=== PATIENT | male | born 1975 | race African-American/Black ===

== ENCOUNTER 2016-07-09 20:31 | Inpatient (IN) | payer OTHER ==
[2016-07-09 21:02] LABS: % IMMATURE GRANULYOCYTES 0.3 % (0.0-1.1); ABSOLUTE IMMATURE GRANULOCYTES 0.02 10^3/uL (0.00-0.10); ADD DIFF? NO; ADD MORPH? NO; ADD SCAN? NO; ATYPICAL LYMPHOCYTE FLAG 10 (0-99); FRAGMENT RBC FLAG 0 (0-99); HEMATOCRIT 44.8 % (40.0-51.0); HEMOGLOBIN 14.5 g/dL (13.7-17.5); LEFT SHIFT FLG 0 (0-99); LIPEMIA HEMOLYSIS FLAG 80 (0-99); MEAN CELL HEMOGLOBIN 27.3 pg (27.9-34.1); MEAN CELL HEMOGLOBIN CONCENTR. 32.4 g/dL (32.4-36.7); MEAN CELL VOLUME 84.2 fL (81.5-99.8); MEAN PLATELET VOLUME 8.8 fL (8.7-11.7); PLATELET CLUMPS FLAG 10 (0-99); PLATELET COUNT 338 10^3/uL (150-400); RED BLOOD CELL COUNT 5.32 10^6/uL (4.40-6.38); RED CELL DISTRIBUTION WIDTH 13.3 % (11.5-15.2)
[2016-07-09 21:14] LABS: ANION GAP 9 mEq/L (8-16); CALCIUM 9.4 mg/dL (8.5-10.4); CARBON DIOXIDE 32 mEq/l (22-31); CHLORIDE 99 mEq/L (97-110); CREATININE 0.9 mg/dL (0.7-1.3); ETHANOL SERUM < 10 mg/dL (0-10); GLOMERULAR FILTRATION RATE > 60; GLUCOSE 98 mg/dL (70-100); POTASSIUM 3.8 mEq/L (3.5-5.2); SODIUM 140 mEq/L (134-144)
--- NOTE | 2016-07-09 23:53 | EDPHY ---
H & P Stated Complaint: SI, NOT TAKING CARE OF HIMSELF - Personal History Current Tetanus Diphtheria and Acellular Pertussis (TDAP): Yes - Medical/Surgical History Other PMH: DM - Social History Smoking Status: Current every day smoker Time Seen by Provider: 07/09/16 20:34 HPI/ROS: Chief complaint: On mental health hold, gravely disabled, suicidal ideation History of present illness: This is a 40-year-old male brought from the long-term by police to the emergency department on a mental health hold. Police report patient is not caring for himself. They believe he is gravely disabled. Further patient is reporting suicidal ideation. There is no specific plan. There is no report of homicidal ideation. No report of illness or injury. Review of systems: A 10 point review of systems was obtained and other than described above was negative (Carlitos Angel) - Physical Exam Exam: General Appearance: Alert, nontoxic. Eyes: Pupils equal and round no pallor or injection. ENT, Mouth: Mucous membranes moist. Respiratory: There are no retractions, lungs are clear to auscultation. Cardiovascular: Regular rate and rhythm. Gastrointestinal: Abdomen is soft and non tender, no masses, bowel sounds normal. Neurological: Alert. Strength and sensation intact and symmetrical. Skin: Warm and dry, no rashes. Musculoskeletal: Neck is supple non tender. Extremities are symmetrical, full range of motion. Psychiatric: There is no agitation. (Carlitos Angel) Constitutional: Initial Vital Signs Temperature (C) 36.6 C 07/09/16 20:42 Heart Rate 98 07/09/16 20:42 Respiratory Rate 16 07/09/16 20:42 Blood Pressure 184/125 H 07/09/16 20:42 O2 Sat (%) 98 07/09/16 20:42 O2 Delivery Mode Room Air Allergies/Adverse Reactions: No Known Allergies Allergy (Unverified 07/09/16 20:42) Home Medications: Medication Instructions Recorded Insulin 07/09/16 Medical Decision Making ED Course/Re-evaluation: Patient seen under the supervision of my secondary supervising physician Dr. Paramjit Carrillo. Patient presents to the emergency department with police on a mental health hold. Police feel he is gravely disabled. Patient does report suicidal ideation to me. Patient is medically evaluated and cleared for psychiatric evaluation. This is pending at time of dictation. Care of patient is turned over to my attending physician Dr. Matthews at end of shift. (Carlitos Angel) 1:00 a.m.- The patient was accepted to [address] [place] [address] Bond. I have completed the EMTALA form and the patient will be transported. (Kristy Matthews) Differential Diagnosis: Included but not limited to substance abuse, depression, bipolar, schizophrenia (Carlitos Angel) - Data Points Laboratory Results: Laboratory Results 07/09/16 20:50 07/09/16 20:50 07/09/16 07/09/16 20:50 20:45 WBC 7.61 10^3/uL (3.80-9.50) RBC 5.32 10^6/uL (4.40-6.38) Hgb 14.5 g/dL (13.7-17.5) Hct 44.8 % (40.0-51.0) MCV 84.2 fL (81.5-99.8) MCH 27.3 L pg (27.9-34.1) MCHC 32.4 g/dL (32.4-36.7) RDW 13.3 % (11.5-15.2) Plt Count 338 10^3/uL (150-400) MPV 8.8 fL (8.7-11.7) Neut % (Auto) 31.4 L % (39.3-74.2) Lymph % (Auto) 55.5 H % (15.0-45.0) Toole % (Auto) 8.1 % (4.5-13.0) Eos % (Auto) 3.9 % (0.6-7.6) Baso % (Auto) 0.8 % (0.3-1.7) Nucleat RBC Rel Count 0.0 % (0.0-0.2) Absolute Neuts (auto) 2.39 10^3/uL (1.70-6.50) Absolute Lymphs (auto) 4.22 H 10^3/uL (1.00-3.00) Absolute Monos (auto) 0.62 10^3/uL (0.30-0.80) Absolute Eos (auto) 0.30 10^3/uL (0.03-0.40) Absolute Basos (auto) 0.06 10^3/uL (0.02-0.10) Absolute Nucleated RBC 0.00 10^3/uL (0-0.01) Immature Gran % 0.3 % (0.0-1.1) Immature Gran # 0.02 10^3/uL (0.00-0.10) Sodium 140 mEq/L (134-144) Potassium 3.8 mEq/L (3.5-5.2) Chloride 99 mEq/L (97-110) Carbon Dioxide 32 H mEq/l (22-31) Anion Gap 9 mEq/L (8-16) BUN 14 mg/dL (7-23) Creatinine 0.9 mg/dL (0.7-1.3) Estimated GFR > 60 Glucose 98 mg/dL (70-100) Calcium 9.4 mg/dL (8.5-10.4) Total Bilirubin 0.4 mg/dL (0.1-1.4) Conjugated Bilirubin 0.2 mg/dL (0.0-0.5) Unconjugated Bilirubin 0.2 mg/dL (0.0-1.1) AST 33 IU/L (17-59) ALT 43 IU/L (21-72) Alkaline Phosphatase 114 IU/L (38-126) Total Protein 7.1 g/dL (6.3-8.2) Albumin 3.7 g/dL (3.5-5.0) TSH 4.160 uIU/mL (0.465-4.680) Urine Opiates Screen NEGATIVE (NEGATIVE) Urine Barbiturates NEGATIVE (NEGATIVE) Ur Phencyclidine Scrn NEGATIVE (NEGATIVE) Ur Amphetamine Screen NEGATIVE (NEGATIVE) U Benzodiazepines Scrn NEGATIVE (NEGATIVE) Urine Cocaine Screen NEGATIVE (NEGATIVE) U Marijuana (THC) Screen NEGATIVE (NEGATIVE) Ethyl Alcohol < 10 mg/dL (0-10) Departure - Departure Disposition: [facility] IP Clinical Impression: Suicidal ideation Condition: Good
[2016-07-10] MEDS ORDERED: OLANZapine DISINTEGR 5 MG TAB PO PRN ×2 (01:15→11:50)
[2016-07-10] MEDS ORDERED: MAGNESIUM HYDROXIDE 30 ML UDCUP PO PRN (01:15)
[2016-07-10] MEDS ORDERED: MAG HYDROX/AL HYDROX/SIMETH 30 ML UDCUP PO PRN (01:15)
[2016-07-10 01:44] LABS: ALANINE AMINOTRANSFERASE 43 IU/L (21-72); ALBUMIN 3.7 g/dL (3.5-5.0); ALKALINE PHOSPHATASE 114 IU/L (38-126); ASPARTATE AMINOTRANSFERASE 33 IU/L (17-59); BILIRUBIN,TOTAL 0.4 mg/dL (0.1-1.4); BILIRUBIN-CONJUGATED 0.2 mg/dL (0.0-0.5); BILIRUBIN-UNCONJUGATED 0.2 mg/dL (0.0-1.1); TOTAL PROTEIN 7.1 g/dL (6.3-8.2)
[2016-07-10] MEDS: ACETAMINOPHEN 325 MG TAB PO PRN ×2 (01:45→15:39)
--- NOTE | 2016-07-10 12:40 | BAPA ---
[ rep st] ADMISSION PSYCHIATRIC ASSESSMENT DATE OF SERVICE: 07/10/2016 When patient asked what brought him into the hospital he states, "I need my insulin. I'm having hallucinations". HISTORY OF PRESENT ILLNESS: Patient is a 40-year-old, male of ( /) who is , with no children who is on disability for chronic mental illness. The patient was evaluated at the group home at the time of his release, and was placed on an M1 hold for grave disability by [facility]. The patient had been in group home since January for "criminal impersonation." The M1 stated the patient has disorganized thinking, a variety of persistent delusions and has not been showering. The patient had been prescribed medication by [facility] psychiatrist, Dr. Sandoval in late April, but has patient refused to take it after a couple times. Patient was 1st diagnosed when he was in college at age 21 with schizoaffective disorder. Dr. Sandoval recently diagnosed him as chronic schizophrenia with disorganized type which seems like the more accurate diagnosis. The M1 hold also states the patient is illogical, rambling, paranoid , is hearing voices and seeing things. The patient has mostly isolated himself from the other inmates since his incarceration in January at the [facility]. Per notes of conversations with the patient's sister, the patient has a history of hospitalizations and not taking medications. His delusions are grandiose, somatic and paranoid in nature. One of the patient's delusions is that he has high blood sugar and needs insulin shots. He told EPS during their evaluation, "I have just relocated to [place] a couple years ago because I just graduated from college and I'm a runner... you know basketball. People are out to get me. They are eyeballing my feelings and trying to find a split personality. People are reading my thoughts" PSYCHIATRIC HISTORY: Patient was 1st diagnosed with psychosis at age 21. He appears to have a history of schizophrenia with delusions, feels people are reading his thoughts, and auditory hallucinations along with disorganized thoughts. Dr. Sandoval from [facility] recently evaluated the patient at the group home on 05/19/2016 and started him on Risperdal but he was refusing it after taking it a few times. Sister said the patient was diagnosed with schizoaffective when he was 21 while in college. No known suicide history. Patient cannot state when he has been hospitalized, however he did have labs from [facility] on 05/15/2012 and also May of 2011. The patient reportedly had a psychiatrist a few years ago when he was having auditory hallucinations, but it does not say who it was or even what state it was. MEDICAL HISTORY: The patient appears healthy. He does have a chronic delusion that he has diabetes. He does appear to have hypertension as his BP is elevated , however his glucose is within normal limits. CBC is normal. Chem panel is within normal limits. LFTs are normal. TSH is normal. Urine tox is negative. SUBSTANCE ABUSE: Has used alcohol and cannabis in the past-no known current use -[employer] FAMILY HISTORY: None known. SOCIAL HISTORY: Patient appears to be homeless. He has had some legal problems. He has been off his medications and has a sister. States he is worship. He is currently unemployed and on disability for schizophrenia. Apparently there is a note from a man named Richmond from the [facility], trying to contact the patient. He was raised by single mother in [place] with his siblings. He was in the past for 20 years and currently is . He has no children. He reports he had been [place] for a couple years but is homeless. 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 He has also spent some time in the [facility] group [facility]. He states he enjoys playing pool and bowling. MENTAL STATUS: Patient is alert and oriented x4. Mood is neutral. Affect is constricted. Thoughts are illogical and disorganized. Speech is tangential. The patient has a somatic delusion that he needs insulin and has high serum glucose. He reports recent auditory hallucinations. Denies current suicidal or homicidal ideation. +Recent Par I and feels people can read his thoughts. Denies problems with sleep or appetite. Memory and concentration are impaired due to psychosis. Insight and judgment are limited. IMPRESSION: Chronic disorganized schizophrenia. GAF on admission is 20. PLAN: The patient agrees to take Abilify. Will start Abilify 10 mg daily with plan of giving him Abilify Maintena if he responds to this medication. The patient will be seen by the medical physician who will treat his hypertension. The patient's BP was up to 179/110. 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 Apparently he has a payee but it is unclear if that is true. Will attempt to get more history. The patient is appropriate for inpatient psychiatric hospitalization. /[id number]/MODL MTDD
[2016-07-10] MEDS: ARIPiprazole 10 MG TAB PO SCH (12:56)
[2016-07-10] MEDS: amLODIPine BESYLATE 5 MG TAB PO SCH (14:46)
--- NOTE | 2016-07-10 16:06 | BCON ---
[f rep st] BEHAVIORAL HEALTH CONSULTATION INTERNAL MEDICINE CONSULTATION DATE OF CONSULTATION: 07/10/2016 REFERRING PHYSICIAN: Nani Bond MD REASON FOR CONSULTATION: Medical clearance for inpatient behavioral health stay. HISTORY OF PRESENT ILLNESS: Mr. Pedro came to the emergency department on a mental health hold, brought by police from penitentiary. He had been in penitentiary since January. It had been observed that he was not caring for himself. He also was reporting suicidal ideation. He was evaluated by the mental health team and admitted for further psychiatric care. He is currently without any acute complaints. PAST SURGICAL HISTORY: He reports a history of an ACL repair on the right knee and also right ankle surgery. PAST MEDICAL HISTORY: He reports that he has diabetes. MEDICATIONS: Prior to admission, he was prescribed risperidone while in penitentiary but reportedly was not taking it. ALLERGIES: There are no known drug allergies. SOCIAL HISTORY: He is homeless. He has family in [place]. He has a history of marijuana and alcohol use. FAMILY HISTORY: Unknown. REVIEW OF SYSTEMS: He reports that he has diabetes, and the symptoms that make him think so are that his feet are sweaty. He also reports that he has abdominal cramps. He denies anorexia, nausea, vomiting, constipation, or diarrhea. Otherwise, a 10-point review of systems is negative. PHYSICAL EXAM: VITAL SIGNS: Blood pressure is 188/115. Heart rate is 86. Respiratory rate is 16. Oxygen saturation is 98% on room air. Temperature is 37.1 degrees centigrade. His weight is recorded as 95.3 kg, which would give him a body mass index of 30.1, but he does not appear to be obese, so height or weight may be recorded incorrectly. His blood pressure has been in the range of 156 to 188 over 90 to 125 since he was first evaluated yesterday. GENERAL: This is a well-nourished, well-developed man, malodorous, cooperative, and in no acute distress. HEENT: Extraocular movements are intact. Pupils are equal , round, and reactive to light. Mucous membranes are moist. Dentition is in good condition. NECK: Supple. HEART: There is a regular rate and rhythm with no murmurs, rubs, or gallops. LUNGS: Clear to auscultation bilaterally. ABDOMEN: Soft, nontender, and nondistended with normoactive bowel sounds. EXTREMITIES: There is no cyanosis, clubbing, or edema. NEUROLOGIC: He is alert. He is oriented to his current situation. Further orientation was not tested. Cranial nerves 2-12 are grossly intact. There is no focal weakness, and sensation is intact to light touch. LABORATORY DATA: Laboratory studies drawn in the emergency department, CBC was overall within normal limits. There is a mild decrement of mean cellular hemoglobin, likely of no clinical significance, and there was a predominance of absolute neutrophils at 4.22, again of no clinical significance. Serum chemistry revealed a slightly high carbon dioxide of 32, otherwise renal function, electrolytes, and liver functions were within normal limits. TSH was normal at 4.16. Toxicology in the urine was negative for substances of abuse, and the serum was negative for ethyl alcohol. ASSESSMENT/RECOMMENDATIONS: 1. Mental health issues. Pending further evaluation and management per Psychiatry and the mental health team. 2. Hypertension. His blood pressure is high enough this morning that he will likely need 2 agents for optimal control. I will begin with amlodipine starting at 5 mg daily. This should be titrated if he tolerates it, and a 2nd agent will likely need to be added. If his mental status clears well enough to be able to understand medications and their adverse affects, the next best choice for him would be a diuretic. I see no medical contraindications to the patient's continued stay on the inpatient behavioral health unit or to any psychiatric medications or procedures. Thank you very much for involving me in the care of this patient, and please do not hesitate to contact me or the hospitalist service should there be a need for further medical evaluation. /[id number]/MODL MTDD
[2016-07-10] MEDS: CEPACOL LOZENGE PO PRN (16:27)
[2016-07-11] MEDS: CEPACOL LOZENGE PO PRN ×3 (05:18→14:20)
[2016-07-11] MEDS: NICOTINE POLACRILEX 2 MG GUM B PRN (05:18)
[2016-07-11] MEDS: ACETAMINOPHEN 325 MG TAB PO PRN ×2 (06:42→14:20)
[2016-07-11] MEDS: ARIPiprazole 10 MG TAB PO SCH (08:40)
[2016-07-11] MEDS: amLODIPine BESYLATE 5 MG TAB PO SCH (08:49)
--- NOTE | 2016-07-11 13:23 | SOAPPROG ---
SOAP Progress Note Assessment/Plan: Assessment: 40 yo w/chronic SZP txf to [facility] on [facility] after time served in snf since Jan, but noted disorganized/psychotic/delusional and not compliant with psych meds. Also with HTN and recent R knee surg 07/12/16 00:49 reviewed notes, t/w staff and interviewed pt. per staff, slept 8hr. cooperative, good eye contact, resting in bed, reported feeling "a little suicidal" and later reported feeling "a little anxious" (why?) "I'm trying to get insulin because I got diabetes". Reports knowing this "because I'm having sweaty feet and cold sweats...(due to) a lack of sugar, or too much sugar" . also endorsed hallucinations "of others trying to mimic what I do". States he took tylenol for h/a, and is "jonesing for a cigarette, but I asked for a throat lozenge". denied any plan/intent to harm self or others. calm. guarded. Plan: cont abilify as recently started 10mg qd monitor for any s/e such as akathisia since c/o anxiety [facility] exp 07/15 at 1740. monitor HTN. per med h&P, recently started norvasc, may need 2nd med Objective: Vital Signs Temp Pulse Resp BP Pulse Ox 36.6 C 80 14 148/97 H 98 07/11/16 07:54 07/11/16 07:54 07/11/16 07:54 07/11/16 07:54 07/11/16 07:54 Medications Generic Name Dose Route Start Last Admin Trade Name Nahomi PRN Reason Stop Dose Admin Lorazepam 0.5 - 1 mg 07/10/16 01:15 Ativan PO 01/06/17 01:14 Q4HRS PRN Anxiety, Able to Take PO Nicotine Polacrilex 2 mg 07/10/16 01:15 07/11/16 05:18 Nicorette B 01/06/17 01:14 2 mg Q1HR PRN Nicotine Withdrawal Throat Lozenges 1 ea 07/10/16 16:17 07/11/16 14:20 Cepacol Lozenge PO 01/06/17 16:16 1 ea Q1 PRN Sore Throat Aripiprazole 10 mg 07/10/16 12:00 07/11/16 08:40 Abilify PO 01/06/17 11:59 10 mg DAILY THALIA Amlodipine Besylate 5 mg 07/10/16 14:30 07/11/16 08:49 Norvasc PO 01/06/17 14:29 5 mg DAILY THALIA Olanzapine 10 mg 07/10/16 11:50 Zyprexa Zydis PO 01/06/17 01:14 Q4 PRN AGITATION - Pending Discharge Pending Discharge Within 24 Hours: No Pending Discharge Within 48 Hours: No ICD10 Worksheet Patient Problems: Problems Problem Status Diagnosed Suicidal ideation Acute
[2016-07-12] MEDS: ACETAMINOPHEN 325 MG TAB PO PRN (06:46)
[2016-07-12] MEDS: CEPACOL LOZENGE PO PRN (06:46)
--- NOTE | 2016-07-12 07:57 | SOAPPROG ---
SOAP Progress Note Assessment/Plan: Assessment: 40 yo w/chronic SZP txf to [facility] on [facility] after time served in half-way since Jan, but noted disorganized/psychotic/delusional and not compliant with psych meds. Also with HTN and recent R knee surg 07/11/16 16:49 reviewed notes, t/w staff and interviewed pt. per staff, slept 8hr. cooperative, good eye contact, resting in bed, reported feeling "a little suicidal" and later reported feeling "a little anxious" (why?) "I'm trying to get insulin because I got diabetes". Reports knowing this "because I'm having sweaty feet and cold sweats...(due to) a lack of sugar, or too much sugar" . also endorsed hallucinations "of others trying to mimic what I do". States he took tylenol for h/a, and is "jonesing for a cigarette, but I asked for a throat lozenge". denied any plan/intent to harm self or others. calm. guarded. Plan: cont abilify as recently started 10mg qd monitor for any s/e such as akathisia since c/o anxiety [facility] exp 07/15 at 1740. monitor HTN. per med h&P, recently started norvasc, may need 2nd med 07/12/16 11:28 per staff, slept 5hr. up at 4am. would like reading glasses so he can read on unit reports mood is "a little hallucinogenic". asked to elaborate- "feeling that others are trying to mimic me". affect restricted, calm. good eye contact. nml vol/rate speech. did not appear responding to int stim. denied AH/VH or any SI. attending some groups. 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 otherwise page noted with extensive illegible disorganized writing of words/ numbers around periphery on both sides. when asked about this, he reports these were things he was writing to not forget. denied physical complaints, and denied s/e to medication. Plan: cont Abilify. placed on [facility] Objective: Vital Signs Temp Pulse Resp BP Pulse Ox 36.8 C 105 H 16 138/100 H 95 07/12/16 06:31 07/12/16 06:31 07/12/16 06:31 07/12/16 06:31 07/12/16 06:31 - Time Spent With Patient Time Spent With Patient: 20min - Pending Discharge Pending Discharge Within 24 Hours: No Pending Discharge Within 48 Hours: No ICD10 Worksheet Patient Problems: Problems Problem Status Diagnosed Suicidal ideation Acute
[2016-07-12] MEDS: ARIPiprazole 10 MG TAB PO SCH (08:13)
[2016-07-12] MEDS: amLODIPine BESYLATE 5 MG TAB PO SCH (08:14)
[2016-07-13] MEDS: ACETAMINOPHEN 325 MG TAB PO PRN (06:05)
[2016-07-13] MEDS: CEPACOL LOZENGE PO PRN (06:06)
[2016-07-13] MEDS: amLODIPine BESYLATE 5 MG TAB PO SCH (08:35)
[2016-07-13] MEDS: ARIPiprazole 10 MG TAB PO SCH (08:35)
--- NOTE | 2016-07-13 11:24 | SOAPPROG ---
SOAP Progress Note Assessment/Plan: Assessment: Pt is a 40 y/o male with a hx of Schizophrenia who was put on an M1 from [facility] for psychosis causing grave disability. He has a delusion that he needs insulin for diabetes which he does not have. Plan:pt on a STC he states he wants to return to [place] con't Abilify 10mg QD for psychosis 07/13/16 11:21 Subjective: no c/o Objective: Vital Signs Temp Pulse Resp BP Pulse Ox 36.8 C 115 H 16 134/89 H 96 07/13/16 11:13 07/13/16 11:13 07/13/16 11:13 07/13/16 11:13 07/13/16 11:13 Pt is A+O x4 mood-euthymic affect-appr no S/H I denies A/V H +delusions sleep/appetite-wnl thoughts-illogical at times speech-monotone no JEANIE memory/conc-fair no sx escobar I/J-limited but is taking meds - Time Spent With Patient Time Spent With Patient: 20' - Pending Discharge Pending Discharge Within 24 Hours: No Pending Discharge Within 48 Hours: No ICD10 Worksheet Patient Problems: Problems Problem Status Diagnosed Suicidal ideation Acute
[2016-07-14] MEDS: ARIPiprazole 10 MG TAB PO SCH (08:54)
[2016-07-14] MEDS: amLODIPine BESYLATE 5 MG TAB PO SCH (08:54)
[2016-07-14] MEDS: ACETAMINOPHEN 325 MG TAB PO PRN (09:02)
--- NOTE | 2016-07-14 11:19 | SOAPPROG ---
SOAP Progress Note Assessment/Plan: Assessment: Pt is a 40 y/o male with a hx of Schizophrenia who was put on an M1 from shelter for psychosis causing grave disability. He has a delusion that he needs insulin for diabetes which he does not have. Plan:pt on a STC con't Abilify 10mg QD for psychosis-pt still with thought disorder and bizarre ideas if pt improves on Abilify will offer Abilify Maintaina 07/14/16 11:19 Subjective: no c/o but reported to RN that someone was smoking on the unit and that it bothered him Objective: Vital Signs Temp Pulse Resp BP Pulse Ox 36.5 C 113 H 14 143/92 H 94 07/14/16 08:40 07/14/16 08:40 07/14/16 06:26 07/14/16 08:54 07/14/16 08:40 Pt is A+O mood-neutral affect-appr denies A/V H speech-rambling thoughts-nonsensical, illogical sleep/appetite/energy level-good + somatic delusions +JEANIE memory-poor conc-poor I/J-limited - Time Spent With Patient Time Spent With Patient: 20' - Pending Discharge Pending Discharge Within 24 Hours: No Pending Discharge Within 48 Hours: No ICD10 Worksheet Patient Problems: Problems Problem Status Diagnosed Suicidal ideation Acute
[2016-07-15] MEDS: amLODIPine BESYLATE 5 MG TAB PO SCH (08:24)
[2016-07-15] MEDS: CEPACOL LOZENGE PO PRN ×3 (08:25→20:16)
[2016-07-15] MEDS: ARIPiprazole 10 MG TAB PO SCH (08:25)
[2016-07-15] MEDS: ACETAMINOPHEN 325 MG TAB PO PRN (20:16)
[2016-07-16] MEDS: LORazepam 0.5 MG TAB PO PRN (07:54)
[2016-07-16] MEDS: ARIPiprazole 10 MG TAB PO SCH (09:07)
[2016-07-16] MEDS: amLODIPine BESYLATE 5 MG TAB PO SCH (09:07)
[2016-07-16] MEDS: CEPACOL LOZENGE PO PRN ×2 (09:07→17:04)
--- NOTE | 2016-07-16 11:11 | SOAPPROG ---
SOAP Progress Note Assessment/Plan: Assessment: Pt is a 40 y/o male with a hx of Schizophrenia who was put on an M1 from [facility] for psychosis causing grave disability. He has a delusion that he needs insulin for diabetes which he does not have. Plan:pt on a STC increase Abilify to 15 mg QD for psychosis-pt still with thought disorder and bizarre ideas if pt improves on Abilify will offer Abilify Maintaina 07/16/16 11:08 Subjective: "I need you to initial some papers to put into my chart." Gives MD 3 pages of documents with scribbling on them. Objective: Vital Signs Temp Pulse Resp BP Pulse Ox 36.4 C 94 20 138/85 H 95 07/16/16 08:00 07/16/16 08:00 07/16/16 08:00 07/16/16 09:07 07/16/16 08:00 Pt is A+O x4 mood-euthymic affect-appr vague SI denies A/V H thoughts-illogical, with somatic delusions +somatic delusions that he needs an inhaler and insulin sleep/appetite-wnl speech-rambling +JEANIE good energy level memory/conc-impaired due to psychosis I/J-limited - Time Spent With Patient Time Spent With Patient: 25' - Pending Discharge Pending Discharge Within 24 Hours: No Pending Discharge Within 48 Hours: No ICD10 Worksheet Patient Problems: Problems Problem Status Diagnosed Suicidal ideation Acute
[2016-07-17] MEDS: CEPACOL LOZENGE PO PRN ×2 (07:31→20:23)
[2016-07-17] MEDS: amLODIPine BESYLATE 5 MG TAB PO SCH (08:15)
[2016-07-17] MEDS: ARIPiprazole 10 MG TAB PO SCH (08:16)
--- NOTE | 2016-07-17 11:30 | SOAPPROG ---
SOAP Progress Note Assessment/Plan: Assessment: Pt is a 40 y/o male with a hx of Schizophrenia who was put on an M1 from correction for psychosis causing grave disability. He has a delusion that he needs insulin for diabetes which he does not have. 07/17/16-pt is more verbal about his delusions and more interactive asking this MD to sign a magazine ad and some papers containing scribbling. Plan:pt on a ST con't Abilify 15 mg QD for psychosis-pt still with thought disorder and bizarre ideas if pt improves on Abilify will offer Abilify Maintaina 07/17/16 11:27 Subjective: "Can you sign these-it has to do with my music and the [employer]." Objective: Vital Signs Temp Pulse Resp BP Pulse Ox 36.6 C 105 H 16 134/81 H 96 07/17/16 08:15 07/17/16 08:15 07/17/16 08:15 07/17/16 08:15 07/17/16 08:15 Pt is A+O x4 mood-neutral affect-appr thoughts-illogical + delusions-grandiose and somatic slept 1.5 hours last night speech-rambling denies A/V H but appears to be responding to internal stimuli no S/H I good appetite +JEANIE memory/conc-impaired by psychosis I/J-limited - Time Spent With Patient Time Spent With Patient: 20' - Pending Discharge Pending Discharge Within 24 Hours: No Pending Discharge Within 48 Hours: No ICD10 Worksheet Patient Problems: Problems Problem Status Diagnosed Suicidal ideation Acute
[2016-07-18] MEDS: LORazepam 0.5 MG TAB PO PRN (06:30)
[2016-07-18] MEDS: amLODIPine BESYLATE 5 MG TAB PO SCH (08:42)
[2016-07-18] MEDS: ARIPiprazole 10 MG TAB PO SCH (08:43)
--- NOTE | 2016-07-18 13:27 | SOAPPROG ---
MARIVEL Progress Note Assessment/Plan: Assessment: Plan: 07/18/16 13:28 Slow improvement. Remains quite ill. CCM. Subjective: Pt seen, discussed with staff, chart reviewed. Remains disorganized, but engaging. He show me numerous copies he has made from magazines with notations on them. He makes references to basketball and making money but it is unclear what any of it means. He is pleasant, but unable to communicate effectively. compliant with meds. Notes no SE's. Tolerated increase in Abilify well. Objective: Vital Signs Temp Pulse Resp BP Pulse Ox 36.6 C 121 H 14 139/97 H 93 07/18/16 08:00 07/18/16 08:00 07/18/16 08:00 07/18/16 08:42 07/18/16 08:00 MSE: Calm, coop. Affect is euthymic, stable, approp. Mood is "good." TP disorganized, rambling. TC reveals grandiose and possibly paranoid thoughts, internal preoccupation at times. - Time Spent With Patient Time Spent With Patient: 25" - Pending Discharge Pending Discharge Within 24 Hours: No Pending Discharge Within 48 Hours: No ICD10 Worksheet Patient Problems: Problems Problem Status Diagnosed Suicidal ideation Acute
[2016-07-19] MEDS: amLODIPine BESYLATE 5 MG TAB PO SCH (07:59)
[2016-07-19] MEDS: ARIPiprazole 10 MG TAB PO SCH (08:00)
[2016-07-19] MEDS: CEPACOL LOZENGE PO PRN ×2 (10:26→15:41)
[2016-07-20] MEDS: ARIPiprazole 10 MG TAB PO SCH (08:26)
[2016-07-20] MEDS: amLODIPine BESYLATE 5 MG TAB PO SCH (08:26)
--- NOTE | 2016-07-20 10:19 | SOAPPROG ---
SOAP Progress Note Assessment/Plan: Assessment: Pt is a 40 y/o male with a hx of Schizophrenia who was put on an M1 from nursing home for psychosis causing grave disability. He has a delusion that he needs insulin for diabetes which he does not have. 07/17/16-pt is more verbal about his delusions and more interactive asking this MD to sign a magazine ad and some papers containing scribbling. 07/20/16-pt asking for us to contact the [employer] who may be his payee-now talking about going to [place] to "play ball" Plan:pt on a ST continue Abilify 15 mg QD for psychosis-pt still with thought disorder and bizarre ideas if pt improves on Abilify will offer Abilify Maintaina 07/20/16 10:15 Subjective: "When can I get out of here.?" Objective: Vital Signs Temp Pulse Resp BP Pulse Ox 36.7 C 95 16 136/100 H 95 07/20/16 00:30 07/20/16 00:30 07/20/16 00:30 07/20/16 08:26 07/20/16 00:30 Pt is A+O x4 mood-neutral affect-appr thoughts-illogical at times then can be logical + disorganized behavior denies A/V H denies S/H I + delusions-grandiose speech-rambling at times slept less than 3 hours appetite/energy level-good memory/conc-poor due to psychosis I/J-limited - Time Spent With Patient Time Spent With Patient: 20 - Pending Discharge Pending Discharge Within 24 Hours: No Pending Discharge Within 48 Hours: No ICD10 Worksheet Patient Problems: Problems Problem Status Diagnosed Suicidal ideation Acute
--- NOTE | 2016-07-20 11:20 | SOAPPROG ---
SOAP Progress Note Assessment/Plan: Assessment: Plan: 07/18/16 13:28 Slow improvement. Remains quite ill. CCM. 07/20/16 11:20 No interval change. CCM. Subjective: LATE ENTRY FOR 07/19/16 Pt seen, discussed with staff. Remains disorganized, moderately agitated, pacing frequently. Intrusive, frequent requesting my attention to show me scraps of paper or magazine ads. Speaking nonsensically at times. No behaviors issues. Objective: Vital Signs Temp Pulse Resp BP Pulse Ox 36.7 C 95 16 136/100 H 95 07/20/16 00:30 07/20/16 00:30 07/20/16 00:30 07/20/16 08:26 07/20/16 00:30 MSE: Moderately agitated. Affect is constricted, stable. Mood is "fine." TP disorganized. TC reveals grandiose delusions, internal preoccupation. - Time Spent With Patient Time Spent With Patient: 25" - Pending Discharge Pending Discharge Within 24 Hours: No Pending Discharge Within 48 Hours: No ICD10 Worksheet Patient Problems: Problems Problem Status Diagnosed Suicidal ideation Acute
[2016-07-21] MEDS: amLODIPine BESYLATE 5 MG TAB PO SCH (08:34)
[2016-07-21] MEDS: ARIPiprazole 10 MG TAB PO SCH (08:36)
--- NOTE | 2016-07-21 10:56 | SOAPPROG ---
SOAP Progress Note Assessment/Plan: Assessment: Pt is a 40 y/o male with a hx of Schizophrenia who was put on an M1 from nursing home for psychosis causing grave disability. He has a delusion that he needs insulin for diabetes which he does not have. 07/17/16-pt is more verbal about his delusions and more interactive asking this MD to sign a magazine ad and some papers containing scribbling. 07/20/16-pt asking for us to contact the [employer] who may be his payee-now talking about going to [place] to "play ball" 07/21/16-pt with bright mood but only slept 1.5 hours Plan:pt on a STC continue Abilify 15 mg QD for psychosis-pt still with thought disorder and bizarre ideas if pt improves on Abilify will offer Abilify Maintaina will add Seroquel for sleep/psychosis CM trying to reach [employer] to see who is pt's payee 07/21/16 10:56 Subjective: "Good." Objective: Vital Signs Temp Pulse Resp BP Pulse Ox 36.8 C 116 H 16 142/81 H 96 07/21/16 08:44 07/21/16 08:44 07/21/16 00:30 07/21/16 08:44 07/21/16 08:44 Pt is A+O x4 mood-euthymic affect-appr thoughts-illogical + grandiose delusions denies A/V H no S/H I speech-rambling at times + disorganized behavior-asks staff to copy pieces of random papers with scribbling on them memory-poor conc-poor I/J-limited - Time Spent With Patient Time Spent With Patient: 20' - Pending Discharge Pending Discharge Within 24 Hours: No Pending Discharge Within 48 Hours: No ICD10 Worksheet Patient Problems: Problems Problem Status Diagnosed Suicidal ideation Acute
[2016-07-21] MEDS: QUEtiapine FUMARATE 100 MG TAB PO SCH (21:14)
[2016-07-22] MEDS: ARIPiprazole 10 MG TAB PO SCH (08:58)
[2016-07-22] MEDS: amLODIPine BESYLATE 5 MG TAB PO SCH (08:58)
--- NOTE | 2016-07-22 13:12 | SOAPPROG ---
SOAP Progress Note Assessment/Plan: Assessment: Plan: 07/18/16 13:28 Slow improvement. Remains quite ill. CCM. 07/20/16 11:[address] [facility]. 07/22/16 13:11 Remains actively psychotic. Not yet able to make decisions for his own well- being or participate in his outpatient care. Subjective: Pt seen, discussed with staff. Reports feeling "just great." Animated, talkative today. Poor boundaries with younger females making inappropriate comments and overtures. Compliant with treatments. Remains disorganized and pressured with odd behaviors. Objective: Vital Signs Temp Pulse Resp BP Pulse Ox 36.6 C 115 H 14 143/92 H 92 07/22/16 08:51 07/22/16 08:51 07/22/16 08:51 07/22/16 08:58 07/22/16 08:51 MSE: Moderately agitated, pressured. Affect is elevated. Mood is "great." TP disorganized. TC reveals loose associations, internal focus. - Time Spent With Patient Time Spent With Patient: 15" - Pending Discharge Pending Discharge Within 24 Hours: No Pending Discharge Within 48 Hours: No ICD10 Worksheet Patient Problems: Problems Problem Status Diagnosed Suicidal ideation Acute
[2016-07-22] MEDS: QUEtiapine FUMARATE 100 MG TAB PO SCH (21:50)
[2016-07-23] MEDS: ARIPiprazole 10 MG TAB PO SCH (08:25)
[2016-07-23] MEDS: amLODIPine BESYLATE 5 MG TAB PO SCH (08:26)
[2016-07-23] MEDS ORDERED: ARIPiprazole 5 MG TAB PO ONE (11:30)
[2016-07-23] MEDS: LORazepam 0.5 MG TAB PO PRN (11:55)
--- NOTE | 2016-07-23 12:14 | SOAPPROG ---
SOAP Progress Note Assessment/Plan: Assessment: Pt is a 40 y/o male with a hx of Schizophrenia who [facility]. He has a delusion that he needs insulin for diabetes which he does not have. 07/17/16-pt is more verbal about his delusions and more interactive asking this MD to sign a magazine ad and some papers containing scribbling. 07/20/16-pt asking for us to contact the [employer] who may be his payee-now talking about going to [place] to "play ball" 07/21/16-pt with bright mood but only slept 1.5 hours 07/23/16-refused Seroquel but slept 5 hours-still asking to copy bizarre papers and asks if "they are fraud" Plan:pt on a STC Will increase Abilify to 20 mg QD for psychosis-pt still with thought disorder and bizarre ideas if pt improves on Abilify will offer Abilify Maintaina will D/C Seroquel as pt is refusing to take it [employer] is pt's payee and have housing set up for pt when he is more stable 07/23/16 12:10 Subjective: "I found an apt for $600 per month." Objective: Vital Signs Temp Pulse Resp BP Pulse Ox 36.3 C 109 H 12 146/87 H 95 07/23/16 09:08 07/23/16 09:08 07/23/16 09:08 07/23/16 09:08 07/23/16 09:08 Pt is A+O x4 mood-euthymic affect-appr thoughts-illogical speech-pressured slept 5 hours appetite and energy level are wnl denies S/H I denies A/V H + delusions speech-rambling memory/conc-impaired by psychosis I/J-limited - Time Spent With Patient Time Spent With Patient: 25' - Pending Discharge Pending Discharge Within 24 Hours: No Pending Discharge Within 48 Hours: No ICD10 Worksheet Patient Problems: Problems Problem Status Diagnosed Suicidal ideation Acute
[2016-07-24] MEDS: amLODIPine BESYLATE 5 MG TAB PO SCH (08:30)
[2016-07-24] MEDS: ARIPiprazole 10 MG TAB PO SCH (08:30)
--- NOTE | 2016-07-24 11:21 | SOAPPROG ---
SOAP Progress Note Assessment/Plan: Assessment: Pt is a 40 y/o male with a hx of Schizophrenia who was put on an M1 from longterm for psychosis causing grave disability. He has a delusion that he needs insulin for diabetes which he does not have. 07/17/16-pt is more verbal about his delusions and more interactive asking this MD to sign a magazine ad and some papers containing scribbling. 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 and talking about buy a 2.5 million dollar condo Plan:pt on a STC Will Continue Abilify to 20 mg QD for psychosis-pt still with thought disorder and bizarre ideas if pt improves on Abilify will offer Abilify Maintaina will D/C Seroquel as pt is refusing to take [facility] and have housing set up for pt when he is more stable 07/24/16 11:18 Subjective: "I have money here." Point to a piece of paper with scribbling Objective: Vital Signs Temp Pulse Resp BP Pulse Ox 36.7 C 121 H 14 134/86 H 95 07/24/16 08:00 07/24/16 08:00 07/24/16 08:00 07/24/16 08:30 07/24/16 08:00 Pt is A+O x4 mood-euthymic affect-appr thoughts-logical speech-wnl no S/H I + AH appears to be responding to internal stimuli no VH + sx of psychosis + delusions-grandiose memory/conc-poor I/J-limited - Time Spent With Patient Time Spent With Patient: 25' - Pending Discharge Pending Discharge Within 24 Hours: No Pending Discharge Within 48 Hours: No ICD10 Worksheet Patient Problems: Problems Problem Status Diagnosed Suicidal ideation Acute
[2016-07-25] MEDS: amLODIPine BESYLATE 5 MG TAB PO SCH (08:32)
[2016-07-25] MEDS: ARIPiprazole 10 MG TAB PO SCH (08:32)
--- NOTE | 2016-07-25 10:42 | SOAPPROG ---
SOAP Progress Note Assessment/Plan: Assessment: Pt is a 40 y/o male with a hx of Schizophrenia who [facility]. He has a delusion that he needs insulin for diabetes which he does not have. 07/17/16-pt is more verbal about his delusions and more interactive asking this MD to sign a magazine ad and some papers containing scribbling. 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 and talking about buy a 2.5 million dollar condo Plan:pt on a ST Will Continue Abilify to 20 mg QD for psychosis-pt still with thought disorder and bizarre ideas if pt improves on Abilify will offer Abilify Maintaina will D/C Seroquel as pt is refusing to take it [employer] [facility] is pt's payee and have housing set up for pt when he is more stable sister reports pt has been on injectable meds in the past and was stable enough to work in the past-mom will get the names of the meds 07/25/16 10:39 Subjective: no c/o Objective: Vital Signs Temp Pulse Resp BP Pulse Ox 36.6 C 104 H 14 140/86 H 95 07/25/16 00:30 07/25/16 00:30 07/25/16 00:30 07/25/16 00:30 07/25/16 00:30 Pt is A+O x 4 mood-euthymic affect-appr +AH denies S/H I thoughts-illogical at times speech-rambling at times, talks about having a lot of money, playing basketball slept 3.5 hours-refusing any meds to help him sleep + grandiose delusions memory/conc-impaired due to psychosis I/J-poor - Time Spent With Patient Time Spent With Patient: 20' - Pending Discharge Pending Discharge Within 24 Hours: No Pending Discharge Within 48 Hours: No ICD10 Worksheet Patient Problems: Problems Problem Status Diagnosed Suicidal ideation Acute
[2016-07-25] MEDS: CEPACOL LOZENGE PO PRN ×3 (12:32→21:49)
[2016-07-26] MEDS: amLODIPine BESYLATE 5 MG TAB PO SCH (08:05)
[2016-07-26] MEDS: ARIPiprazole 10 MG TAB PO SCH (08:05)
--- NOTE | 2016-07-26 11:15 | SOAPPROG ---
SOAP Progress Note Assessment/Plan: Assessment: Pt is a 40 y/o male with a hx of Schizophrenia who was put on an M[facility] from [facility] for psychosis causing grave disability. He has a delusion that he needs insulin for diabetes which he does not have. 07/17/16-pt is more verbal about his delusions and more interactive asking this MD to sign a magazine ad and some papers containing scribbling. 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 is pt's payee and have housing set up for pt when he is more stable sister reports pt has been on injectable meds in the past and was stable enough to work in the past-mom will get the names of the meds 07/26/16 12:16 Subjective: Still grandiose about having money and playing basketball for colleges in [place]" and states, "I'm having suicidal thoughts." Objective: Vital Signs Temp Pulse Resp BP Pulse Ox 36.6 C 113 H 14 142/94 H 92 07/26/16 10:06 07/26/16 10:06 07/26/16 10:06 07/26/16 10:06 07/26/16 10:06 Pt is A+O mood-neutral affect-appr denies A/V H but may be responding to int stimuli + Delusions +SI with thoughts to jump off a bridge poor sleep good appetite thoughts-illogical speech-rambling memory-impaired I/J-poor - Time Spent With Patient Time Spent With Patient: 20' - Pending Discharge Pending Discharge Within 24 Hours: No Pending Discharge Within 48 Hours: No ICD10 Worksheet Patient Problems: Problems Problem Status Diagnosed Suicidal ideation Acute
[2016-07-27] MEDS: amLODIPine BESYLATE 5 MG TAB PO SCH (07:50)
[2016-07-27] MEDS: ARIPiprazole 10 MG TAB PO SCH (07:51)
--- NOTE | 2016-07-27 10:27 | SOAPPROG ---
SOAP Progress Note Assessment/Plan: Assessment: Pt is a 40 y/o male with a hx of Schizophrenia who [facility] for psychosis causing grave disability. He has a delusion that he needs insulin for diabetes which he does not have. 07/17/16-pt is more verbal about his delusions and more interactive asking this MD to sign a magazine ad and some papers containing scribbling. 07/20/16-pt asking for us to contact the [facility] [employer] [facility] who may be his payee-now talking about going to [place] to "play ball" 07/21/16-pt with bright mood but only slept 1.5 hours 07/23/16-refused Seroquel but slept 5 hours-still asking to copy bizarre papers and asks if "they are fraud" 07/24/16 -still disorganized talking about playing basketball for multiple colleges and talking about buy a 2.5 million dollar condo 07/26/16-only slept 1 hour last night but refusing to take any additional meds and states, "I'm having suicidal thoughts" 07/27/16-pt finally slept-went to bed early and slept 14+ hours Plan:pt on a STC Will Continue Abilify to 20 mg QD for psychosis-pt still with thought disorder and bizarre ideas if pt improves on Abilify will offer Abilify Maintaina will D/C Seroquel as pt is refusing to take it [facility] is pt's payee and have housing set up for pt when he is more stable sister reports pt has been on injectable meds in the past and was stable enough to work in the past-mom will get the names of the meds 07/27/16 10:24 Subjective: "Can I be discharged today?" Objective: Vital Signs Temp Pulse Resp BP Pulse Ox 36.6 C 105 H 14 143/80 H 91 L 07/26/16 23:42 07/26/16 23:42 07/26/16 23:42 07/26/16 23:42 07/26/16 23:42 Pt is A+O x4 mood-euthymic affect-appr denies A/V H + grandiose delusions no S/H I today thoughts-illogical + sx psychosis speech-rambling slept 14+ hours appetite-wnl energy level-wnl I/J-poor - Time Spent With Patient Time Spent With Patient: 20' - Pending Discharge Pending Discharge Within 24 Hours: No Pending Discharge Within 48 Hours: No ICD10 Worksheet Patient Problems: Problems Problem Status Diagnosed Suicidal ideation Acute
[2016-07-27] MEDS ORDERED: PALIPERIDONE PALMITATE 234 MG/1.5 ML SYR IM ONE (10:57)
[2016-07-28] MEDS: ARIPiprazole 10 MG TAB PO SCH (08:08)
[2016-07-28] MEDS: amLODIPine BESYLATE 5 MG TAB PO SCH (08:08)
--- NOTE | 2016-07-28 10:57 | SOAPPROG ---
SOAP Progress Note Assessment/Plan: Assessment: Pt is a 40 y/o male with a hx of Schizophrenia who was put on an M1 from [facility] for psychosis causing grave disability. He has a delusion that he needs insulin for diabetes which he does not have. 07/17/16-pt is more verbal about his delusions and more interactive asking this MD to sign a magazine ad and some papers containing scribbling. 07/20/16-pt asking for us to contact [facility] who may be his payee-now talking about going to [place] to "play ball" 07/21/16-pt with bright mood but only slept 1.5 hours 07/23/16-refused Seroquel but slept 5 hours-still asking to copy bizarre papers and asks if "they are fraud" 07/24/16 -still disorganized talking about playing basketball for multiple colleges and talking about buy a 2.5 million dollar condo 07/26/16-only slept 1 hour last night but refusing to take any additional meds and states, "I'm having suicidal thoughts" 07/27/16-pt finally slept-went to bed early and slept 14+ hours 07/28/16-slept 7 hours last night-still with bizarre statements and psychosis Plan:pt on a STC Will Continue Abilify to 20 mg QD for psychosis-pt still with thought disorder and bizarre ideas if pt improves on Abilify will offer Abilify Maintaina will D/C Seroquel as pt is refusing to take it [facility] is pt's payee and have housing set up for pt when he is more stable sister reports pt has been on injectable meds in the past and was stable enough to work Invega sustana 234 mg IM given 07/27/16 07/27/16 10:24 07/28/16 10:54 Subjective: "I [facility] to go to [facility] Objective: Vital Signs Temp Pulse Resp BP Pulse Ox 36.7 C 117 H 14 140/100 H 95 07/28/16 08:00 07/28/16 08:00 07/28/16 08:00 07/28/16 08:08 07/28/16 08:00 Pt is A+O mood-euthymic affect-appr ? AH + grandiose delusions slept 7 hours good appetite no S/H I today thoughts-bizarre, illogical speech-rambling at times memory-impaired poor conc I/J-limited - Time Spent With Patient Time Spent With Patient: 20' - Pending Discharge Pending Discharge Within 24 Hours: No Pending Discharge Within 48 Hours: No ICD10 Worksheet Patient Problems: Problems Problem Status Diagnosed Suicidal ideation Acute
[2016-07-29] MEDS: amLODIPine BESYLATE 5 MG TAB PO SCH ×2 (07:43→08:29)
[2016-07-29] MEDS: ARIPiprazole 10 MG TAB PO SCH ×2 (07:43→08:28)
--- NOTE | 2016-07-29 11:31 | SOAPPROG ---
SOAP Progress Note Assessment/Plan: Assessment: Pt is a 40 y/o male with a hx of Schizophrenia who was put on an M1 from nursing home for psychosis causing grave disability. He has a delusion that he needs insulin for diabetes which he does not have. 07/17/16-pt is more verbal about his delusions and more interactive asking this MD to sign a magazine ad and some papers containing scribbling. 07/20/16-pt asking for us to contact the [facility] who may be his payee-now talking about going to [place] to "play ball" 07/21/16-pt with bright mood but only slept 1.5 hours 07/23/16-refused Seroquel but slept 5 hours-still asking to copy bizarre papers and asks if "they are fraud" 07/24/16 -still disorganized talking about playing basketball for multiple colleges and talking about buy a 2.5 million dollar condo 07/26/16-only slept 1 hour last night but refusing to take any additional meds and states, "I'm having suicidal thoughts" 07/27/16-pt finally slept-went to bed early and slept 14+ hours 07/28/16-slept 7 hours last night-still with bizarre statements and psychosis 07/29/16 only slept 2.5 hours-still psychotic Plan:pt on a STC Will Continue Abilify to 20 mg QD for psychosis-pt still with thought disorder and bizarre ideas if pt improves on Abilify will offer Abilify Maintaina will D/C Seroquel as pt is refusing to take it [facility] is pt's payee and have housing set up for pt when he is more stable sister reports pt has been on injectable meds in the past and was stable enough to work Invega sustana 234 mg IM given 07/27/16 07/29/16 11:28 Subjective: Pt asks to be his own payee Objective: Vital Signs Temp Pulse Resp BP Pulse Ox 36.6 C 106 H 14 129/70 H 96 07/29/16 07:45 07/29/16 07:45 07/29/16 00:30 07/29/16 08:29 07/29/16 07:45 Pt is A+O x4 mood-neutral affect-appr +grandiose delusions denies A/V H no S/H I thoughts-illogical speech-rambling poor sleep memory/conc-impaired Disorganized behavior-hoarding pieces of paper with scribbling on it I/J-poor - Time Spent With Patient Time Spent With Patient: 15' - Pending Discharge Pending Discharge Within 24 Hours: No Pending Discharge Within 48 Hours: No ICD10 Worksheet Patient Problems: Problems Problem Status Diagnosed Suicidal ideation Acute
[2016-07-29] MEDS: CEPACOL LOZENGE PO PRN ×2 (15:02→16:38)
[2016-07-30] MEDS: CEPACOL LOZENGE PO PRN ×4 (04:29→18:16)
[2016-07-30] MEDS: amLODIPine BESYLATE 5 MG TAB PO SCH (08:40)
[2016-07-30] MEDS: ARIPiprazole 10 MG TAB PO SCH (08:41)
--- NOTE | 2016-07-30 11:46 | SOAPPROG ---
SOAP Progress Note Assessment/Plan: Assessment: Pt is a 40 y/o male with a hx of Schizophrenia who was [facility] M[facility] from [facility] for psychosis causing grave disability. He has a delusion that he needs insulin for diabetes which he does not have. 07/17/16-pt is more verbal about his delusions and more interactive asking this MD to sign a magazine ad and some papers containing scribbling. 07/20/16-pt asking for us to contact the [facility] who may be his payee-now talking about going to [place] to "play ball" 07/21/16-pt with bright mood but only slept 1.5 hours 07/23/16-refused Seroquel but slept 5 hours-still asking to copy bizarre papers and asks if "they are fraud" 07/24/16 -still disorganized talking about playing basketball for multiple colleges and talking about buy a 2.5 million dollar condo 07/26/16-only slept 1 hour last night but refusing to take any additional meds and states, "I'm having suicidal thoughts" 07/27/16-pt finally slept-went to bed early and slept 14+ hours 07/28/16-slept 7 hours last night-still with bizarre statements and psychosis 07/29/16 only slept 2.5 hours-still psychotic 07/30/16-pt still not sleeping well -still grandiose-doing summersaults in his room ? mood component Plan:pt on a STC Will Continue Abilify to 20 mg QD for psychosis-pt still with thought disorder and bizarre ideas if pt improves on Abilify will offer Abilify Maintaina will D/C Seroquel as pt is refusing to take it [facility] is pt's payee and have housing set up for pt when he is more stable sister reports pt has been on injectable meds in the past and was stable enough to work Invega sustana 234 mg IM given 07/27/16 will add Depakote as pt states he's been on this in the past for mood stab will order Invega sustana 156 mg for 08/02/16 07/30/16 11:43 07/30/16 11:46 Subjective: Pt still talks about playing basketball for college Objective: Vital Signs Temp Pulse Resp BP Pulse Ox 36.6 C 99 16 141/83 H 93 07/30/16 00:30 07/30/16 00:30 07/30/16 00:30 07/30/16 08:40 07/30/16 00:30 Pt is A+O x4 distracted mood-neutral affect-appr denies A/V H no S/H I + grandiosity thoughts-illogical speech-rambling slept 5 hours + psychomotor agitation-doing summersaults in his room memory-poor conc-poor I/J-limited - Time Spent With Patient Time Spent With Patient: 20' - Pending Discharge Pending Discharge Within 24 Hours: No Pending Discharge Within 48 Hours: No ICD10 Worksheet Patient Problems: Problems Problem Status Diagnosed Suicidal ideation Acute
[2016-07-30] MEDS: DIVALPROEX NA 250 MG TAB PO SCH (20:55)
[2016-07-30] MEDS: LORazepam 0.5 MG TAB PO PRN (23:26)
[2016-07-31] MEDS: LORazepam 0.5 MG TAB PO PRN (03:18)
[2016-07-31] MEDS: ARIPiprazole 10 MG TAB PO SCH (08:03)
[2016-07-31] MEDS: DIVALPROEX NA 250 MG TAB PO SCH (08:03)
[2016-07-31] MEDS: amLODIPine BESYLATE 5 MG TAB PO SCH (08:03)
--- NOTE | 2016-07-31 10:40 | SOAPPROG ---
SOAP Progress Note Assessment/Plan: Assessment: Pt is a 40 y/o male with a hx of Schizophrenia who was put on an M1 from group home for psychosis causing grave disability. He has a delusion that he needs insulin for diabetes which he does not have. 07/17/16-pt is more verbal about his delusions and more interactive asking this MD to sign a magazine ad and some papers containing scribbling. 07/20/16-pt asking for us to contact the [facility] who may be his payee-now talking about going to [place] to "play ball" 07/21/16-pt with bright mood but only slept 1.5 hours 07/23/16-refused Seroquel but slept 5 hours-still asking to copy bizarre papers and asks if "they are fraud" 07/24/16 -still disorganized talking about playing basketball for multiple colleges and talking about buy a 2.5 million dollar condo 07/26/16-only slept 1 hour last night but refusing to take any additional meds and states, "I'm having suicidal thoughts" 07/27/16-pt finally slept-went to bed early and slept 14+ hours 07/28/16-slept 7 hours last night-still with bizarre statements and psychosis 07/29/16 only slept 2.5 hours-still psychotic 07/30/16-pt still not sleeping well -still grandiose-doing summersaults in his room ? mood component 07/31/16-pt refusing Depakote so will D/C Plan:pt on a STC Will Continue Abilify to 20 mg QD for psychosis-pt still with thought disorder and bizarre ideas if pt improves on Abilify will offer Abilify Maintaina will D/C Seroquel as pt is refusing to take it [facility] is pt's payee and have housing set up for pt when he is more stable sister reports pt has been on injectable meds in the past and was stable enough to work Invega sustana 234 mg IM given 07/27/16 D/C Depakote-pt refusing will order Invega sustana 156 mg for 08/02/16 07/31/16 10:37 Subjective: Pt continues to ask MD to sign pieces of paper with scribbling all over them Objective: Vital Signs Temp Pulse Resp BP Pulse Ox 36.6 C 100 16 141/83 H 94 07/31/16 01:39 07/31/16 01:39 07/31/16 01:39 07/31/16 08:03 07/31/16 01:39 Pt is A+O x4 mood-neutral affect-appr denies A/V H ?AH denies S/H I thoughts-illogical speech-rambling + grandiose delusions memory/conc-impaired sec to psychosis slept 5.5 hours appetite-good I/J-poor - Time Spent With Patient Time Spent With Patient: 20' - Pending Discharge Pending Discharge Within 24 Hours: No Pending Discharge Within 48 Hours: No ICD10 Worksheet Patient Problems: Problems Problem Status Diagnosed Suicidal ideation Acute
[2016-07-31] MEDS: CEPACOL LOZENGE PO PRN (15:05)
[2016-08-01] MEDS: LORazepam 0.5 MG TAB PO PRN (02:49)
[2016-08-01] MEDS: amLODIPine BESYLATE 5 MG TAB PO SCH (08:56)
[2016-08-01] MEDS: ARIPiprazole 10 MG TAB PO SCH (08:57)
[2016-08-02] MEDS ORDERED: PALIPERIDONE PALMITATE 156 MG/ML SYR IM ONE (08:00)
[2016-08-02] MEDS: amLODIPine BESYLATE 5 MG TAB PO SCH (08:44)
[2016-08-02] MEDS: ARIPiprazole 10 MG TAB PO SCH (08:44)
--- NOTE | 2016-08-02 10:39 | SOAPPROG ---
SOAP Progress Note Assessment/Plan: Assessment: 40 yo w/chronic SZP txf to [facility] on [facility] after time served in correction since Jan, but noted disorganized/psychotic/delusional and not compliant with psych meds. 08/01/16 21:21 per staff, slept 4 hrs. 30#wt gain since admission, still disorganized but in a more organized manner. has asked to buy blind patient's seeing eye dog on unit pt reports "I'm trying to work with my meds, I dont want my head spinning" states a friend who left him insurance money. hard to return to sleep b/c craving cigarette in AM. calm, cooperative, good eye contact, nml speech rate denied feeling depressed or any SI/AH/VH 08/02/16 11:31 per staff, slept 3hr states however that he "slept pretty good". when asked about the reported 3hr, states "I got family that never reported my smoking habit, it's genetic, so I wake up craving at about 5am" denies being aware of any snoring or NICOLE sxs denied other physical complaints. consistently tachycardic. denied s/e to Invega received today. calm, nml speech, delusions but no reported si/ah/vh Plan: cont current meds, Invega received today Objective: Vital Signs Temp Pulse Resp BP Pulse Ox 36.7 C 115 H 14 137/96 H 95 08/02/16 08:00 08/02/16 08:00 08/02/16 08:00 08/02/16 08:44 08/02/16 08:00 - Time Spent With Patient Time Spent With Patient: 20min - Pending Discharge Pending Discharge Within 24 Hours: No Pending Discharge Within 48 Hours: No ICD10 Worksheet Patient Problems: Problems Problem Status Diagnosed Suicidal ideation Acute
--- NOTE | 2016-08-02 10:42 | SOAPPROG ---
SOAP Progress Note Assessment/Plan: Assessment: 40 yo w/chronic SZP txf to [facility] on [facility] after time served in prison since Jan, but noted disorganized/psychotic/delusional and not compliant with psych meds. 08/01/16 21:21 per staff, slept 4 hrs. 30#wt gain since admission, still disorganized but in a more organized manner. has asked to buy blind patient's seeing eye dog on unit pt reports "I'm trying to work with my meds, I dont want my head spinning" states a friend who left him insurance money. hard to return to sleep b/c craving cigarette in AM. calm, cooperative, good eye contact, nml speech rate denied feeling depressed or any SI/AH/VH Plan: cont current meds, Invega scheduled for 08/02 Objective: Vital Signs Temp Pulse Resp BP Pulse Ox 36.7 C 115 H 14 137/96 H 95 08/02/16 08:00 08/02/16 08:00 08/02/16 08:00 08/02/16 08:44 08/02/16 08:00 08/01/16 VS: BP 130/80 P115 AF - Time Spent With Patient Time Spent With Patient: 25 min - Pending Discharge Pending Discharge Within 24 Hours: No Pending Discharge Within 48 Hours: No ICD10 Worksheet Patient Problems: Problems Problem Status Diagnosed Suicidal ideation Acute
[2016-08-03] MEDS: LORazepam 0.5 MG TAB PO PRN (00:17)
[2016-08-03] MEDS: CEPACOL LOZENGE PO PRN ×2 (00:17→21:25)
[2016-08-03] MEDS: ARIPiprazole 10 MG TAB PO SCH (09:25)
[2016-08-03] MEDS: amLODIPine BESYLATE 5 MG TAB PO SCH (09:25)
--- NOTE | 2016-08-03 11:28 | SOAPPROG ---
SOAP Progress Note Assessment/Plan: Assessment: Pt is a 40 y/o male with a hx of Schizophrenia who was put on an M1 from nursing home for psychosis causing grave disability. He has a delusion that he needs insulin for diabetes which he does not have. 07/17/16-pt is more verbal about his delusions and more interactive asking this MD to sign a magazine ad and some papers containing scribbling. 07/20/16-pt asking for us to contact [facility] who may be his payee-now talking about going to [place] to "play ball" 07/21/16-pt with bright mood but only slept 1.5 hours 07/23/16-refused Seroquel but slept 5 hours-still asking to copy bizarre papers and asks if "they are fraud" 07/24/16 -still disorganized talking about playing basketball for multiple colleges and talking about buy a 2.5 million dollar condo 07/26/16-only slept 1 hour last night but refusing to take any additional meds and states, "I'm having suicidal thoughts" 07/27/16-pt finally slept-went to bed early and slept 14+ hours 07/28/16-slept 7 hours last night-still with bizarre statements and psychosis 07/29/16 only slept 2.5 hours-still psychotic 07/30/16-pt still not sleeping well -still grandiose-doing summersaults in his room ? mood component 07/31/16-pt refusing Depakote so will D/C 08/03/16-pt still asking MD to sign papers and states now he wants to [place] to play basketball Plan:pt on a STC Will Continue Abilify to 20 mg QD for psychosis-pt still with thought disorder and bizarre ideas if pt improves on Abilify will offer Abilify Maintaina will D/C Seroquel as pt is refusing to take it [facility] is pt's payee and have housing set up for pt when he is more stable sister reports pt has been on injectable meds in the past and was stable enough to work Invega sustana 234 mg IM given 07/27/16 D/C Depakote-pt refusing Invega sustana 156 mg given 08/02/16 07/31/16 10:37 08/03/16 11:25 Subjective: "Can you sing those papers for me. I want to fly to [place] to be in a basketball tournament." Objective: Vital Signs Temp Pulse Resp BP Pulse Ox 37.0 C 106 H 14 141/81 H 96 08/03/16 07:41 08/03/16 07:41 08/03/16 00:30 08/03/16 09:25 08/03/16 07:41 Pt is A+O mood-neutral affect-appr thoughts-illogical speech-rambling denies A/V H no S/H I slept 7 hours last night good appetite memory/conc-limited I/J-limited - Time Spent With Patient Time Spent With Patient: 25' - Pending Discharge Pending Discharge Within 24 Hours: No Pending Discharge Within 48 Hours: No ICD10 Worksheet Patient Problems: Problems Problem Status Diagnosed Suicidal ideation Acute
[2016-08-04] MEDS: ARIPiprazole 10 MG TAB PO SCH (08:49)
[2016-08-04] MEDS: amLODIPine BESYLATE 5 MG TAB PO SCH (08:49)
--- NOTE | 2016-08-04 12:03 | SOAPPROG ---
SOAP Progress Note Assessment/Plan: Assessment: Pt is a 40 y/o male with a hx of Schizophrenia who was put on an M1 from shelter for psychosis causing grave disability. He has a delusion that he needs insulin for diabetes which he does not have. 07/17/16-pt is more verbal about his delusions and more interactive asking this MD to sign a magazine ad and some papers containing scribbling. 07/20/16-pt asking for us to contact the [employer] [facility] [employer] who may be his payee-now talking about going to [place] to "play ball" 07/21/16-pt with bright mood but only slept 1.5 hours 07/23/16-refused Seroquel but slept 5 hours-still asking to copy bizarre papers and asks if "they are fraud" 07/24/16 -still disorganized talking about playing basketball for multiple colleges and talking about buy a 2.5 million dollar condo 07/26/16-only slept 1 hour last night but refusing to take any additional meds and states, "I'm having suicidal thoughts" 07/27/16-pt finally slept-went to bed early and slept 14+ hours 07/28/16-slept 7 hours last night-still with bizarre statements and psychosis 07/29/16 only slept 2.5 hours-still psychotic 07/30/16-pt still not sleeping well -still grandiose-doing summersaults in his room ? mood component 07/31/16-pt refusing Depakote so will D/C 08/03/16-pt still asking MD to sign papers and states now he wants to [place] to play basketball 08/04/16-states now he wants to take a bus to [facility] but overall is improving slowly Plan:pt on a STC Will Continue Abilify to 20 mg QD for psychosis-pt still with thought disorder and bizarre ideas if pt improves on Abilify will offer Abilify Maintaina will D/C Seroquel as pt is refusing to take it [facility] is pt's payee and have housing set up for pt when he is more stable sister reports pt has been on injectable meds in the past and was stable enough to work Invega sustana 234 mg IM given 2/6/17 D/C Depakote-pt refusing Invega sustana 156 mg given 08/02/16 07/31/16 10:37 08/03/16 11:25 08/04/16 12:01 Subjective: "Can I take a bus to [place]?" Objective: Vital Signs Temp Pulse Resp BP Pulse Ox 36.7 C 117 H 14 155/105 H 96 08/04/16 08:00 08/04/16 08:00 08/04/16 08:00 08/04/16 08:49 08/04/16 08:00 Pt is A+O x4 mood-euthymic affect-appr slept 3 hours good appetite thoughts-more logical speech-less rambling memory-fair [id number] improved denies A/V H no S/H I I/J-fair - Time Spent With Patient Time Spent With Patient: 20' - Pending Discharge Pending Discharge Within 24 Hours: No Pending Discharge Within 48 Hours: No ICD10 Worksheet Patient Problems: Problems Problem Status Onset Suicidal ideation Acute
[2016-08-05] MEDS: amLODIPine BESYLATE 5 MG TAB PO SCH (09:09)
[2016-08-05] MEDS: ARIPiprazole 10 MG TAB PO SCH (09:10)
[2016-08-05] MEDS: CEPACOL LOZENGE PO PRN (11:33)
--- NOTE | 2016-08-05 13:40 | SOAPPROG ---
SOAP Progress Note Assessment/Plan: Assessment: Pt is a 40 y/o male with a hx of Schizophrenia who was put on an M1 from detention for psychosis causing grave disability. He has a delusion that he needs insulin for diabetes which he does not have. 07/17/16-pt is more verbal about his delusions and more interactive asking this MD to sign a magazine ad and some papers containing scribbling. 07/20/16-pt asking for us to contact the [facility] [employer] [facility] who may be his payee-now talking about going to [place] to "play ball" 07/21/16-pt with bright mood but only slept 1.5 hours 07/23/16-refused Seroquel but slept 5 hours-still asking to copy bizarre papers and asks if "they are fraud" 07/24/16 -still disorganized talking about playing basketball for multiple colleges and talking about buy a 2.5 million dollar condo 07/26/16-only slept 1 hour last night but refusing to take any additional meds and states, "I'm having suicidal thoughts" 07/27/16-pt finally slept-went to bed early and slept 14+ hours 07/28/16-slept 7 hours last night-still with bizarre statements and psychosis 07/29/16 only slept 2.5 hours-still psychotic 07/30/16-pt still not sleeping well -still grandiose-doing summersaults in his room ? mood component 07/31/16-pt refusing Depakote so will D/C 08/03/16-pt still asking MD to sign papers and states now he wants to [place] to play basketball 08/04/16-states now he wants to take a bus to [place] but overall is improving slowly 08/05/16-slowly improving-still asking MD to sign pieces of papers containing scribbling Plan:pt on a STC Will Continue Abilify to 20 mg QD for psychosis-pt still with thought disorder and bizarre ideas-Abilify increased 08/04/16 if pt improves on Abilify will offer Abilify Maintaina will D/C Seroquel as pt is refusing to take it [facility] is pt's payee and have housing set up for pt when he is more stable sister reports pt has been on injectable meds in the past and was stable enough to work Invega sustana 234 mg IM given 07/27/16 D/C Depakote-pt refusing Invega sustana 156 mg given 08/02/16 08/05/16 13:37 Subjective: "Can you sign these papers and put your phone number on them?" Objective: Vital Signs Temp Pulse Resp BP Pulse Ox 36.9 C 124 H 14 125/73 H 93 08/05/16 08:00 08/05/16 08:00 08/05/16 08:00 08/05/16 09:09 08/05/16 08:00 Pt is A+O x4 mood-euthymic affect-appr no A/V H + grandiose delusions about having a lot of money and being a billiard player thoughts-illogical at times speech-wnl no S/H I slept 5.5 hours memory-impaired conc-fair appetite/energy level-wnl I/J-limited - Time Spent With Patient Time Spent With Patient: 25' - Pending Discharge Pending Discharge Within 24 Hours: No Pending Discharge Within 48 Hours: No ICD10 Worksheet Patient Problems: Problems Problem Status Onset Suicidal ideation Acute
[2016-08-06] MEDS: ARIPiprazole 10 MG TAB PO SCH (08:54)
[2016-08-06] MEDS: amLODIPine BESYLATE 5 MG TAB PO SCH (08:55)
--- NOTE | 2016-08-06 12:10 | SOAPPROG ---
SOAP Progress Note Assessment/Plan: Assessment: Pt is a 40 y/o male with a hx of Schizophrenia who was put on an M1 from [facility] for [facility] causing grave disability. He has a delusion that he needs insulin for diabetes which he does not have. 07/17/16-pt is more verbal about his delusions and more interactive asking this MD to sign a magazine ad and some papers containing scribbling. 07/20/16-pt asking for us to contact the [facility] [employer] [facility] who may be his payee-now talking about going to [place] to "play ball" 07/21/16-pt with bright mood but only slept 1.5 hours 07/23/16-refused Seroquel but slept 5 hours-still asking to copy bizarre papers and asks if "they are fraud" 07/24/16 -still disorganized talking about playing basketball for multiple colleges and talking about buy a 2.5 million dollar condo 07/26/16-only slept 1 hour last night but refusing to take any additional meds and states, "I'm having suicidal thoughts" 07/27/16-pt finally slept-went to bed early and slept 14+ hours 07/28/16-slept 7 hours last night-still with bizarre statements and psychosis 07/29/16 only slept 2.5 hours-still psychotic 07/30/16-pt still not sleeping well -still grandiose-doing summersaults in his room ? mood component 07/31/16-pt refusing Depakote so will D/C 08/03/16-pt still asking MD to sign papers and states now he wants to [place] to play basketball 08/04/16-states now he wants to take a bus to [place] but overall is improving slowly 08/05/16-slowly improving-still asking MD to sign pieces of papers containing scribbling 08/06/16-continues to improved-wants to be his own payee Plan:pt on a STC Will Continue Abilify to 20 mg QD for psychosis-pt still with thought disorder and bizarre ideas-Abilify increased 08/04/16 if pt improves on Abilify will offer Abilify Maintaina will D/C Seroquel as pt is refusing to take it [facility] is pt's payee and have housing set up for pt when he is more stable sister reports pt has been on injectable meds in the past and was stable enough to work Invega sustana 234 mg IM given 07/27/16 D/C Depakote-pt refusing Invega sustana 156 mg given 08/02/16 08/06/16 12:08 Subjective: "Can you sign this for me so I can be my own payee?" Objective: Vital Signs Temp Pulse Resp BP Pulse Ox 36.9 C 122 H 16 135/85 H 94 08/06/16 08:49 08/06/16 08:49 08/06/16 00:05 08/06/16 08:55 08/06/16 08:49 Pt is A+O x4 mood-euthymic affect-appr no A/V H no S/H I slept 5 hours good appetite-gaining weight thoughts-more logical speech-less rambling memory-impaired due to psychosis conc-fair no JEANIE I/J-improving - Time Spent With Patient Time Spent With Patient: 25' - Pending Discharge Pending Discharge Within 24 Hours: No Pending Discharge Within 48 Hours: No ICD10 Worksheet Patient Problems: Problems Problem Status Onset Suicidal ideation Acute
[2016-08-07] MEDS: ARIPiprazole 10 MG TAB PO SCH (08:45)
[2016-08-07] MEDS: amLODIPine BESYLATE 5 MG TAB PO SCH (08:45)
[2016-08-07] MEDS: ACETAMINOPHEN 325 MG TAB PO PRN (08:48)
--- NOTE | 2016-08-07 11:21 | SOAPPROG ---
SOAP Progress Note Assessment/Plan: Assessment: Pt is a 40 y/o male with a hx of Schizophrenia who was [place] causing grave disability. He has a delusion that he needs insulin for diabetes which he does not have. 07/17/16-pt is more verbal about his delusions and more interactive asking this MD to sign a magazine ad and some papers containing scribbling. 07/20/16-pt asking for us to contact the [facility] who may be his payee-now talking about going to [place] to "play ball" 07/21/16-pt with bright mood but only slept 1.5 hours 07/23/16-refused Seroquel but slept 5 hours-still asking to copy bizarre papers and asks if "they are fraud" 07/24/16 -still disorganized talking about playing basketball for multiple colleges and talking about buy a 2.5 million dollar condo 07/26/16-only slept 1 hour last night but refusing to take any additional meds and states, "I'm having suicidal thoughts" 07/27/16-pt finally slept-went to bed early and slept 14+ hours 07/28/16-slept 7 hours last night-still with bizarre statements and psychosis 07/29/16 only slept 2.5 hours-still psychotic 07/30/16-pt still not sleeping well -still grandiose-doing summersaults in his room ? mood component 07/31/16-pt refusing Depakote so will D/C 08/03/16-pt still asking MD to sign papers and states now he wants to [place] to play basketball 08/04/16-states now he wants to take a bus to [place] but overall is improving slowly 08/05/16-slowly improving-still asking MD to sign pieces of papers containing scribbling 08/06/16-continues to improved-wants to be his own payee -improving Plan:pt on a STC Will Continue Abilify to 20 mg QD for psychosis-pt still with thought disorder and bizarre ideas-Abilify increased 08/04/16 [facility] is pt's payee and have housing set up for pt when he is more stable sister reports pt has been on injectable meds in the past and was stable enough to work even though still had delusions Invega sustana 234 mg IM given 07/27/16 Invega sustana 156 mg given 08/02/16 D/C next to [place] 08/07/16 11:18 Subjective: no c/o Objective: Vital Signs Temp Pulse Resp BP Pulse Ox 36.6 C 103 H 14 130/80 H 98 08/07/16 07:41 08/07/16 07:41 08/07/16 06:23 08/07/16 08:45 08/07/16 07:41 Pt is A+O x4 mood-euthymic affect=appr thoughts-more logical speech-less rambling slept 3.5 hours still with some delusions memory-improving conc-improving no S/H I no A/V H no JEANIE appetite/energy level-wnl I/J-fair - Time Spent With Patient Time Spent With Patient: 20' - Pending Discharge Pending Discharge Within 24 Hours: No Pending Discharge Within 48 Hours: No ICD10 Worksheet Patient Problems: Problems Problem Status Onset Suicidal ideation Acute
[2016-08-07] MEDS: CEPACOL LOZENGE PO PRN (14:16)
[2016-08-07] MEDS: LORazepam 0.5 MG TAB PO PRN (21:09)
[2016-08-08] MEDS: ARIPiprazole 10 MG TAB PO SCH ×5 (08:25→10:41)
[2016-08-08] MEDS: amLODIPine BESYLATE 5 MG TAB PO SCH (08:27)
--- NOTE | 2016-08-08 16:39 | SOAPPROG ---
SOAP Progress Note Assessment/Plan: Assessment: 40 yo w/chronic SZP txf to [facility] on [facility] after time served in long-term since Jan, noted disorganized/psychotic/delusional and not compliant with psych meds. Now on IM and improved, still with delusions but more organized and per hx has been able to function better incl work when on IM meds despite chronic delusions Plan: pt on a STC Abilify now 30 mg QD starting today, for psychosis-since pt still with thought disorder and bizarre ideas, monitor for akathisia [facility] is pt's payee and have housing set up for pt when he is more stable sister reports pt has been on injectable meds in the past and was stable enough to work even though still had delusions Invega sustana 234 mg IM given 07/27/16, Invega sustana 156 mg given 08/02/16 cont Amlodipine 5mg for HTN taking 1mg ativan at [facility] prn insomnia D/C next 08/13 to [facility] 08/08/16 17:00 per staff: slept 7.5hr Had incr Abilify today and denied any s/e. Hopes to play college football after d/c. Also reported some SI with thoughts to jump from a bridge related to delusional thoughts around his family being after him, but feels safe in hospital. calm, cooperative, good eye contact, nml speech. mood "I'm okay", affect euthymic. denied ah/vh or current si/hi but +delusional thoughts as noted denied physical complaints. states meds are fine, no s/e but mild feeling of need to pace Objective: Vital Signs Temp Pulse Resp BP Pulse Ox 36.4 C 109 H 16 130/80 H 95 08/08/16 04:50 08/08/16 04:50 08/08/16 04:50 08/08/16 04:50 08/08/16 04:50 - Time Spent With Patient Time Spent With Patient: 20 min - Pending Discharge Pending Discharge Within 24 Hours: No Pending Discharge Within 48 Hours: No ICD10 Worksheet Patient Problems: Problems Problem Status Onset Suicidal ideation Acute
[2016-08-09] MEDS: LORazepam 0.5 MG TAB PO PRN (02:23)
[2016-08-09] MEDS: ARIPiprazole 10 MG TAB PO SCH (09:00)
[2016-08-09] MEDS: amLODIPine BESYLATE 5 MG TAB PO SCH (09:00)
--- NOTE | 2016-08-10 00:39 | SOAPPROG ---
SOAP Progress Note Assessment/Plan: Assessment: 40 yo w/chronic SZP txf to [facility] on [facility] after time served in shelter since Jan, noted disorganized/psychotic/delusional and not compliant with psych meds. Now on IM and improved, still with delusions but more organized and per hx has been able to function better incl work when on IM meds despite chronic delusions 08/08/16 17:00 per staff: slept 7.5hr Had incr Abilify today and denied any s/e. Hopes to play college football after d/c. Also reported some SI with thoughts to jump from a bridge related to delusional thoughts around his family being after him, but feels safe in hospital. MSE: calm, cooperative, good eye contact, nml speech. mood "I'm okay", affect euthymic. denied ah/vh or current si/hi but +delusional thoughts as noted denied physical complaints. states meds are fine, no s/e but mild feeling of need to pace 08/09/16 17:33 slept 3 hours only last night. ordered 2 pizzas last pm, hungry. making unwanted advances toward another F peer and asking for personal info. redirected. if not able to maintain boundaries, will place on restriction. asking to make copies of papers with disorganized writings. MSE: neatly groomed, AAM, good eye contact, nml speech rate/vol. mood "fine", affect restricted, calm. denied SI/HI, or any AH/VH. delusional thoughts. behavioral control. denied med s/e. does not appear restless or pacing. no physical complaints. Plan: pt on a [facility] Abilify 30 mg QD since 08/08. [facility] is pt's payee and have housing set up for pt when he is more stable any cm from [facility] to help assess baseline this week? or [facility] list? sister reports pt has been on injectable meds in the past and was stable enough to work even though still had delusions Invega sustana 234 mg IM given 07/27/16, Invega sustana 156 mg given 08/02/16 cont Amlodipine 5mg for HTN taking 1mg ativan at hs prn insomnia D/C next 08/13 to [place] Objective: Vital Signs Temp Pulse Resp BP Pulse Ox 36.6 C 113 H 16 131/83 H 96 08/09/16 21:16 08/09/16 21:16 08/09/16 00:48 08/09/16 21:16 08/09/16 21:16 - Time Spent With Patient Time Spent With Patient: 10 min - Pending Discharge Pending Discharge Within 24 Hours: No Pending Discharge Within 48 Hours: No ICD10 Worksheet Patient Problems: Problems Problem Status Onset Suicidal ideation Acute
[2016-08-10] MEDS: amLODIPine BESYLATE 5 MG TAB PO SCH (07:44)
[2016-08-10] MEDS: ARIPiprazole 10 MG TAB PO SCH (07:44)
[2016-08-11] MEDS: ARIPiprazole 10 MG TAB PO SCH (08:53)
[2016-08-11] MEDS: amLODIPine BESYLATE 5 MG TAB PO SCH (08:53)
--- NOTE | 2016-08-11 11:18 | SOAPPROG ---
SOAP Progress Note Assessment/Plan: Assessment: Pt is a 40 y/o male with a hx of Schizophrenia who [facility] causing grave disability. He has a delusion that he needs insulin for diabetes which he does not have. 07/17/16-pt is more verbal about his delusions and more interactive asking this MD to sign a magazine ad and some papers containing scribbling. 07/20/16-pt asking for us to contact the [facility] who may be his payee-now talking about going to [place] to "play ball" 07/21/16-pt with bright mood but only slept 1.5 hours 07/23/16-refused Seroquel but slept 5 hours-still asking to copy bizarre papers and asks if "they are fraud" 07/24/16 -still disorganized talking about playing basketball for multiple colleges and talking about buy a 2.5 million dollar condo 07/26/16-only slept 1 hour last night but refusing to take any additional meds and states, "I'm having suicidal thoughts" 07/27/16-pt finally slept-went to bed early and slept 14+ hours 07/28/16-slept 7 hours last night-still with bizarre statements and psychosis 07/29/16 only slept 2.5 hours-still psychotic 07/30/16-pt still not sleeping well -still grandiose-doing summersaults in his room ? mood component 07/31/16-pt refusing Depakote so will D/C 08/03/16-pt still asking MD to sign papers and states now he wants to [place] to play basketball 08/04/16-states now he wants to take a bus to [place] but overall is improving slowly 08/05/16-slowly improving-still asking MD to sign pieces of papers containing scribbling 08/06/16-continues to improved-wants to be his own payee -improving Plan:pt on a STC Will Continue Abilify to 20 mg QD for psychosis-pt still with thought disorder and bizarre ideas-Abilify increased 08/04/16 [facility] is pt's payee and have housing set up for pt when he is more stable sister reports pt has been on injectable meds in the past and was stable enough to work even though still had delusions Invega sustana 234 mg IM given 07/27/16 Invega sustana 156 mg given 08/02/16 D/C this Thurs to [place] 08/07/16 11:11 Subjective: no c/o Objective: Vital Signs Temp Pulse Resp BP Pulse Ox 36.7 C 98 12 135/86 H 95 08/11/16 01:59 08/11/16 01:59 08/11/16 01:59 08/11/16 01:59 08/11/16 01:59 Pt is A+O x4 mood-euthymic affect-appr denies A/V H denies S/H I slept 2 hours good appetite and energy level thoughts-logical speech-wnl + delusions-chronic memory-fair conc-fair I/J-fair - Time Spent With Patient Time Spent With Patient: 20' - Pending Discharge Pending Discharge Within 24 Hours: No Pending Discharge Within 48 Hours: Yes Pending Discharge Date: 08/13/16 Pending Discharge Time: 11:00 ICD10 Worksheet Patient Problems: Problems Problem Status Onset Suicidal ideation Acute
[2016-08-12] MEDS: ARIPiprazole 10 MG TAB PO SCH (08:08)
[2016-08-12] MEDS: amLODIPine BESYLATE 5 MG TAB PO SCH (08:09)
--- NOTE | 2016-08-12 09:07 | SOAPPROG ---
SOAP Progress Note Assessment/Plan: Assessment: 40 yo w/chronic SZP txf to [facility] on [facility] after time served in group home since Jan, noted disorganized/psychotic/delusional and not compliant with psych meds. Now on IM and improved, still with delusions but more organized and per hx has been able to function better incl work when on IM meds despite chronic delusions 08/08/16 17:00 per staff: slept 7.5hr Had incr Abilify today and denied any s/e. Hopes to play college football after d/c. Also reported some SI with thoughts to jump from a bridge related to delusional thoughts around his family being after him, but feels safe in hospital. MSE: calm, cooperative, good eye contact, nml speech. mood "I'm okay", affect euthymic. denied ah/vh or current si/hi but +delusional thoughts as noted denied physical complaints. states meds are fine, no s/e but mild feeling of need to pace 08/09/16 17:33 slept 3 hours only last night. ordered 2 pizzas last pm, hungry. making unwanted advances toward another F peer and asking for personal info. redirected. if not able to maintain boundaries, will place on restriction. asking to make copies of papers with disorganized writings. MSE: neatly groomed, AAM, good eye contact, nml speech rate/vol. mood "fine", affect restricted, calm. denied SI/HI, or any AH/VH. delusional thoughts. behavioral control. denied med s/e. does not appear restless or pacing. no physical complaints. Plan: pt on a [facility] Abilify 30 mg QD since 08/08. [place] [employer] [facility] is pt's payee and have housing set up for pt when he is more stable any cm from [facility] to help assess baseline this week? or [facility] list? sister reports pt has been on injectable meds in the past and was stable enough to work even though still had delusions Invega sustana 234 mg IM given 07/27/16, Invega sustana 156 mg given 08/02/16 cont Amlodipine 5mg for HTN taking 1mg ativan at hs prn insomnia D/C next 08/13 to [place] 08/10/16 08:53 LATE ENTRY Pt slept 1hr when asked about sleep, 1hr not an issue for him. explains sleep disturbance being a genetic issue related to a family that smokes. Talked about having a "tendency to smoke crack, smoking is genetic..." denied cocaine cravings, "If I' m not participating in it, there is no need to wake up, so if I wake up, it's genetics". Does not want prn for sleep. Wants to copy papers ([facility] Admission Agreement copy) which he reports indicate he is recipient of a music award. No interest in talking w a clinical review nurse here b/c "I'm already one, and I'm about to become an juancarlos" no physical complaints. MSE: cooperative, calm, good eye contact, mood "I'm feeling open-minded and good about myself, I think I'm carrying myself real impressively", affect restricted, thought content- denied SI/HI, or any AH/VH. chronic grandiose delusions. did not appear responding to internal stimuli reports AH "if I'm irritated". not recently. Thought process: disorganized, illogical and somewhat loose to more open-ended questions. i/j-impaired due to chronic psychosis PLAN: cont current meds as above. chronic delusions. perhaps someday could try clozaril but has compliance issues. Consider [facility] list if not felt to be ready for d/c soon Objective: Vital Signs Temp Pulse Resp BP Pulse Ox 36.7 C 108 H 14 136/87 H 95 08/12/16 07:44 08/12/16 07:44 08/12/16 02:12 08/12/16 08:09 08/12/16 07:44 - Time Spent With Patient Time Spent With Patient: 20min - Pending Discharge Pending Discharge Within 24 Hours: No Pending Discharge Within 48 Hours: No ICD10 Worksheet Patient Problems: Problems Problem Status Onset Suicidal ideation Acute
--- NOTE | 2016-08-12 11:07 | SOAPPROG ---
SOAP Progress Note Assessment/Plan: Assessment: Pt is a 40 y/o male with a hx of Schizophrenia who was put on an M1 from alf for psychosis causing grave disability. He has a delusion that he needs insulin for diabetes which he does not have. 07/17/16-pt is more verbal about his delusions and more interactive asking this MD to sign a magazine ad and some papers containing scribbling. 07/20/16-pt asking for us to contact the [facility] who may be his payee-now talking about going to [place] to "play ball" 07/21/16-pt with bright mood but only slept 1.5 hours 07/23/16-refused Seroquel but slept 5 hours-still asking to copy bizarre papers and asks if "they are fraud" 07/24/16 -still disorganized talking about playing basketball for multiple colleges and talking about buy a 2.5 million dollar condo 07/26/16-only slept 1 hour last night but refusing to take any additional meds and states, "I'm having suicidal thoughts" 07/27/16-pt finally slept-went to bed early and slept 14+ hours 07/28/16-slept 7 hours last night-still with bizarre statements and psychosis 07/29/16 only slept 2.5 hours-still psychotic 07/30/16-pt still not sleeping well -still grandiose-doing summersaults in his room ? mood component 07/31/16-pt refusing Depakote so will D/C 08/03/16-pt still asking MD to sign papers and states now he wants to [place] to play basketball 08/04/16-states now he wants to take a bus to [place] but overall is improving slowly 08/05/16-slowly improving-still asking MD to sign pieces of papers containing scribbling 08/06/16-continues to improved-wants to be his own payee -improving Plan:pt on a STC Will Continue Abilify to 20 mg QD for psychosis-pt still with thought disorder and bizarre ideas-Abilify increased 08/04/16 [facility] is pt's payee and have housing set up for pt when he is more stable sister reports pt has been on injectable meds in the past and was stable enough to work even though still had delusions Invega sustana 234 mg IM given 07/27/16 Invega sustana 156 mg given 08/02/16 D/C tomorrow 08/12/16 11:04 Subjective: no c/o Objective: Vital Signs Temp Pulse Resp BP Pulse Ox 36.7 C 108 H 14 136/87 H 95 08/12/16 07:44 08/12/16 07:44 08/12/16 02:12 08/12/16 08:09 08/12/16 07:44 Pt is A+O x4 mood-euthymic affect-appr + chronic delusions thoughts-more logical memory-improving denies A/V H denies par I denies S/H I slept 5.5 hours no JEANIE I/A-wmeb-rsittew meds - Time Spent With Patient Time Spent With Patient: 20' - Pending Discharge Pending Discharge Within 24 Hours: Yes Pending Discharge Within 48 Hours: Yes Pending Discharge Date: 08/13/16 Pending Discharge Time: 11:00 ICD10 Worksheet Patient Problems: Problems Problem Status Onset Suicidal ideation Acute
[2016-08-12] MEDS: NICOTINE POLACRILEX 2 MG GUM B PRN ×3 (13:48→18:46)
[2016-08-13 01:31] VITALS: BP 140/87; PULSE 111; RESP 16; TEMP 98.1; O2SAT 94
[2016-08-13] MEDS: ARIPiprazole 10 MG TAB PO SCH (08:09)
[2016-08-13] MEDS: amLODIPine BESYLATE 5 MG TAB PO SCH (08:10)
[2016-08-13] MEDS: NICOTINE POLACRILEX 2 MG GUM B PRN (08:34)
--- NOTE | 2016-08-13 14:47 | BDS ---
Date of Admission: 07/10/16 Date of Discharge: 08/13/16 CHIEF COMPLAINT: When patient asked what brought him into the hospital. He states, "I need my insulin. I'm having hallucinations." HISTORY OF PRESENT ILLNESS: Patient is a 40-year-old male of , and , who is with no children, who is currently on disability for chronic mental illness. The patient was evaluated in the [facility] at the time of his release and was placed on an M1 hold for grave disability by [facility]. The patient has been in [facility] since January for criminal impersonation. The M1 stated the patient has disorganized thinking , a variety of persistent delusions and has not been showering. The patient had been prescribed medication by [facility] psychiatrist Dr. Sandoval in late April, Risperdal, but the patient refused to take it after a couple doses. DIAGNOSIS ON ADMISSION: Chronic disorganized schizophrenia. GAF on admission is 20. No medical problems. HOSPITAL COURSE: The patient stated he did not want to take Risperdal but agreed to take Abilify. He was started on Abilify 10 mg daily with the plan that he would get Abilify Maintena if the Abilify was effective. The Abilify helped his symptoms; however, his delusions changed from feeling he needed insulin to believing that he could go to [place] and play professional basketball. The patient is a musician by history. His hygiene improved his sleep was poor throughout his hospitalization. He averaged about 4 hours sleep at night. Sometimes he would get a good night's sleep, but in general he slept poorly; however, he had good energy level during the day and a good appetite and gained quite a bit of weight here. He denied feeling suicidal except for a couple times which lasted just a day and he never made any attempts or did not ever seem depressed. He participated in groups and activities and never had any behavior problems. He was put on a short-term cert. He agreed to take Invega Sustenna, because he had been on Risperdal before, and he was given an injection of 234 mg 2016 and a followup dose of 156 on 08/02/2016 and he improved. His Abilify was increased to 30mg daily and he was compliant with this. He had no side effects from either medications. He was no longer having delusions that he needed insulin. His hygiene was good. His family reported he had chronic delusions but is able to function even with the delusions. It appeared that he was the best that he could be and did not meet criteria for transfer to [facility]. The pet caretaker got in touch with [facility] who is his payee, and they had a plan for him to stay at a hotel until they found him housing, and he could see their provider. The patient consistently wanted to be his own payee and had MD sign multiple pieces of paper throughout his hospitalization with scribbling on it, but none of them were a payee form,as he clearly should not be his own payee. The patient was diagnosed with hypertension and started on Norvasc 5mg daily. DISCHARGE MEDICATIONS: Abilify 30 mg daily, Invega Sustenna 117 mg IM every month due 08/26/2016; Norvasc 5 mg daily for hypertension. LABS: CBC was normal. Chem panel was normal. LFTs were normal. Urine tox was negative. MENTAL STATUS ON DISCHARGE: Patient is alert and oriented x4. The patient is calm and cooperative. Mood is euthymic. Affect is appropriate. Patient denies auditory or visual hallucinations. Denies suicidal or homicidal ideation. No delusions expressed. Thoughts logical and coherent. Speech normal rate and rhythm. Sleep, appetite and energy level are within normal limits. Memory is fair. No symptoms of acute escobar or psychosis. No suicidal or homicidal ideation. Insight and judgment are improved since admission. DIAGNOSIS ON DISCHARGE: 1. Chronic schizophrenia. 2. Hypertension. 3. GAF on discharge is 55. DISCHARGE PLAN: The patient's short-term cert will be dropped. He will be seen by [facility] and has an appointment today. He will take a bus [place] and then go to [place]. He will arrive at his egg caser's office with [facility]. Address is on discharge paperwork. Also, will have housing and hotel waiting for him, and he will meet med provider today as well. Patient is psychiatrically stable for discharge and was discharged voluntarily. /[id number]/MODL MTDD
== END 2016-08-13 11:05 | disposition home or self-care (01) | DRG 885 ==
LOC: EEVIPCON 20:31 → BBEH 07-10 01:10
PROVIDERS: ADMIT Psychiatry & Neurology Behavioral Neurology & Neuropsychiatry; ATTEND Psychiatry & Neurology Behavioral Neurology & Neuropsychiatry
DX: F20.1 Disorganized schizophrenia (principal); I10 Essential (primary) hypertension; F17.210 Nicotine dependence, cigarettes, uncomplicated; Z59.0 Homelessness
CPT/HCPCS: 80305; G0480; J2426

== ENCOUNTER 2017-09-13 18:37 | Inpatient (IN) | payer OTHER ==
--- NOTE | 2017-09-13 19:00 | EDPHY ---
General - History Smoking Status: Light smoker Time Seen by Provider: 09/13/17 18:54 Narrative: CHIEF COMPLAINT: "mental health help," dehydration, "foggy" HISTORY OF PRESENT ILLNESS: Patient presents voluntarily with complaints of asking for mental health help, feeling dehydrated and "foggy." He says that he has been off his medications for several months, at the recommendation of physician. He says that he has not been dealing well with this. He says he has had occasional headaches, difficulty with thought process. He has had no chest pain or shortness of breath. No cough. No complaints of systemic illness. He feels as though he was taken off his medication appropriately and has had difficulty dealing with this. Head difficulty focusing. He has had difficulty performing his daily processes. He has lost his home throughout this. He says that he was at [facility] for 3 days and then discharged home today with no medications. He is here asking for resumption medication PSYCHIATRIC DIAGNOSES: Schizoaffective, bipolar disorder PRIOR PSYCHIATRIC EVALUATIONS: Multiple evaluations M1/DETAINER: Dr. Hernandez. 7:15 p.m. Today REVIEW OF SYSTEMS: Ten systems reviewed and are negative unless otherwise noted in the HPI EXAMINATION General Appearance: Alert, no distress, unkempt. Wearing P prescribes Head: normocephalic, atraumatic Eyes: Pupils equal and round, no conjunctival pallor or injection. No nystagmus. EOMs are symmetric. ENT, Mouth: Mucous membranes dry. Airway is widely patent. Neck: Normal inspection, supple, non-tender Respiratory: Lungs are clear to auscultation Cardiovascular: Tachycardic rate. Regular rhythm. No murmur. Gastrointestinal: Abdomen is soft and nontender no tympany rigidity. Back: non-tender, no bony abnormalities Neurological: GCS 15. A&O, nonfocal, normal gait. Strength symmetric in all 4 limbs. No pronator drift. Normal [id number]. Skin: Warm and dry, no rash no petechiae or purpura. There of as evidence chronic picking of nails and skin around his fingernails. Extremities: Nontender, no pedal edema. Symmetric range of motion. Psychiatric: Pressured speech, flight of ideas, tangential thought. Grave disability. Denies SI. DIFFERENTIAL DIAGNOSES: Including but not limited to hypomanic, manic, bipolar disorder, schizoaffective , dehydration, grave disability, neuroleptics malignant syndrome MDM: 7:15 p.m. Multiple bizarre physical complaints of do not matches examination. He does have history of schizoaffective disorder bipolar disorder. He has been off medications for several months under supervision of physician. He is here asking for resumption of medication for his "mental health." He is not suicidal. He does appear to be gravely disabled to me with tachycardia, pressured speech, poor self-care, flight of ideas and tangential thought process. He has been placed on an M1 hold for these. Proceed with medical clearance and evaluation. He is cooperative thus far. 8:00 p.m. Chest x-ray is unremarkable for any pneumonia. CBC shows mild leukocytosis. Chemistries unremarkable. Drug tox is negative. He is currently receiving 2 L IV fluid as I do suspect dehydration. We received the report from the patient' s recent stay to [facility]. He was reportedly treated for hypertension and suicidal ideation. There is documentation the patient was exhibiting acute psychosis with hallucinations on September 11. He had normal right upper quadrant ultrasound on September 12. His drug screen was negative there but reportedly positive at the previous facility the day before. There is documentation that at 6:00 a.m. Today, September 13 that the patient was seen by Psychiatry and Psychiatry felt he was stable for discharge home. They documented he was not suicidal or homicidal. He was not paranoid. He was discharged in stable condition from [facility]. 8:10 p.m. At this time is laboratory studies are unremarkable. He has a normal drug screen. Chest x-ray is negative for pneumonia. He has not been vomiting despite his complaint. He has been attempting to make himself vomit as witnessed by myself and the RN. I do feel he is stable for medical clearance and ready for psychiatric evaluation. 10:00 p.m. Patient is still pending psychiatric evaluation. He is resting comfortably. 11:45 p.m. Patient still resting comfortably pending a psychiatric evaluation. His vital signs have completely normalized since time arrival. At this time Dr. Harvey will assume care the patient. Please see his note for further care final disposition. EKG interpretation: Dr. Hernandez SUPERVISION: Patient was independently examined, but I discussed the case with my secondary supervising physician Dr. Hernandez (Ball,Tashi) Medical Decision MakinAM: No acute events overnight. 0700: Patient signed over to Dr. Johnson at 7AM shift-change (Sheldon Harvey) Patient has remained stable On my shift. 9:30 a.m. patient has been accepted for admission at [address] [place] [address] Gates[address] ( Liang Johnson) - Objective Vital Signs: Initial Vital Signs Temperature (C) 36.6 C 09/13/17 18:39 Heart Rate 117 H 09/13/17 18:39 Respiratory Rate 16 09/13/17 18:39 Blood Pressure 139/103 H 09/13/17 18:39 O2 Sat (%) 96 09/13/17 18:39 O2 Delivery Mode Room Air Allergies/Adverse Reactions: No Known Allergies Allergy (Unverified 07/09/16 20:42) Home Medications: Medication Instructions Recorded ARIPiprazole [Abilify 10 mg (*)] 30 mg PO DAILY #30 tab 08/13/16 Paliperidone Palmitate [Invega 117 mg IM ONCE #1 syr 08/13/16 Sustenna] amLODIPine BESYLATE [Norvasc 5 mg 5 mg PO DAILY #30 tab 08/13/16 (*)] Laboratory Results: Laboratory Results 09/13/17 19:24 09/13/17 19:24 Medications Given: Discontinued Medications Sodium Chloride (Ns) 1,000 mls @ 0 mls/hr IV EDNOW ONE; Wide Open PRN Reason: Protocol Stop: 09/13/17 19:19 Last Admin: 09/13/17 19:25 Dose: 1,000 mls Ondansetron HCl (Zofran) 4 mg IVP EDNOW ONE Stop: 09/13/17 19:46 Last Admin: 09/13/17 19:46 Dose: 4 mg Departure - Departure Disposition: [facility] IP Clinical Impression: Schizoaffective disorder Qualifiers: Schizoaffective disorder type: bipolar Qualified Code(s): F25.0 - Schizoaffective disorder, bipolar type Condition: Fair Referrals: NONE *PRIMARY CARE P,. [Primary Care Provider] - As per Instructions
[2017-09-13] MEDS ORDERED: NS 1,000 ML IV ONE (19:18)
--- NOTE | 2017-09-13 19:24 | CPEKG ---
Heart Rate: 120 RR Interval: 500 P-R Interval: 164 QRSD Interval: 88 QT Interval: 312 QTC Interval: 441 P Crescent: 49 QRS Crescent: 74 T Wave Crescent: 19 EKG Severity - OTHERWISE NORMAL ECG - EKG Impression: SINUS TACHYCARDIA Electronically Signed By: Julius Hernandez 13-Sep-2017 19:24:06
[2017-09-13] MEDS ORDERED: ONDANSETRON 4 MG/2 ML VIAL ONE (19:30)
[2017-09-13 19:31] LABS: PLATELET COUNT 364 10^3/uL (150-400)
[2017-09-13] MEDS ORDERED: ONDANSETRON 4 MG/2 ML VIAL IVP ONE (19:45)
--- NOTE | 2017-09-14 14:43 | BCON ---
[f rep st] BEHAVIORAL HEALTH CONSULTATION DATE OF CONSULTATION: 09/14/2017 REFERRING PHYSICIAN: Adelso Conn MD REASON FOR REFERRAL: Medical clearance for inpatient behavioral health stay. HISTORY OF PRESENT ILLNESS: This patient presented to the emergency department with multiple complaints including feeling dehydrated and feeling foggy. He apparently also reported vomiting in the emergency department, but no vomiting was witnessed other than attempt to self induce. He was found to be disorganized and after IV hydration, he was evaluated by the mental health team and admitted for further psychiatric care. Currently, he complains of some very vague nonspecific abdominal pain. PAST MEDICAL HISTORY: 1. Schizoaffective disorder. 2. Hypertension. PAST SURGICAL HISTORY: Right knee ACL repair and right ankle surgery. MEDICATIONS: Prior to admission, he was on no medications. ALLERGIES: There are no known drug allergies. SOCIAL HISTORY: He is vague on his current situation. He is hoping that he can be placed in a correction. He is a nonsmoker and denies using alcohol. FAMILY HISTORY: Noncontributory. REVIEW OF SYSTEMS: He reports he has had some weight gain and per chart review on 07/09/2016, he weighed 95 kg when admitted to the inpatient behavioral health unit. On 08/08/2016, he weighed 101 kg and on his current stay, his weight is recorded at 105 kg, representing a 10 kg weight gain in a little more than a year. He says he has a good appetite. Currently he denies nausea, vomiting, constipation, or diarrhea. He says he has some chest pain. He reports that he snores and he says that he takes an afternoon nap whenever he can. Otherwise, a 10-point review of systems is negative. PHYSICAL EXAMINATION: VITAL SIGNS: Blood pressure is 142/83 and since he presented to the emergency department has ranged from 139 to 147 systolic and 83 to 103 diastolic, heart rate is 107, respiratory rate is 16, oxygen saturation is 96% on room air. Temperature is 36.7 degrees centigrade. His weight is 105.2 kg for a body mass index of 31. GENERAL: This is an obese man, appears his chronologic age, cooperative and in no acute distress, dressed in a green hospital smock. HEENT: Extraocular movements are intact. Pupils are equal , round, and reactive to light. Mucous membranes are moist. Dentition in good condition. He has an uncrowded airway, Mallampati class 1. NECK: Supple. HEART: There is a regular rate and rhythm with no murmurs, rubs, or gallops. LUNGS: Clear to auscultation bilaterally. ABDOMEN: Soft, nontender, nondistended with normoactive bowel sounds. EXTREMITIES: There is no cyanosis, clubbing, or edema. NEUROLOGIC: Orientation was not tested. Cranial nerves 2 through 12 are grossly intact. He appears to confabulate. There is no focal weakness. Sensation is intact to light touch and gait is within normal limits. LABORATORY STUDIES DRAWN IN EMERGENCY DEPARTMENT: CBC revealed an elevated white blood cell count at 10.81. There was no left shift. There was a predominance of absolute neutrophils and absolute monocytes. He had a slightly low MCHC at 27.4, likely of no clinical significance. Serum chemistry revealed an elevated glucose at 117 but this was likely not fasting at 1924 in the evening. Otherwise, renal function and electrolytes were within normal limits. TSH was normal at 3.12. Toxicology screen serum was negative for ethyl alcohol and in the urine was negative for any substances of abuse. He had an EKG which showed normal sinus rhythm. He had a chest x-ray which showed hypo- expansion, but otherwise was within normal limits. ASSESSMENT AND RECOMMENDATIONS: 1. Mental health issues. Pending further evaluation and management per Psychiatry and the mental health team. 2. Obesity and weight gain. Consider avoiding medications which would cause further weight gain, however, his psychosocial stability is his first priority. 3. History of hypertension with mildly elevated blood pressures. With his current blood pressures, he is borderline as to whether or not he should be treated. Advise monitoring of blood pressure and if it is consistently above 140/90, then would advise restarting amlodipine probably at a low dose of 2.5 to 5 mg daily. I see no medical contraindications to this patient's continued stay on the inpatient behavioral health unit or to any psychiatric medications or procedures. Thank you very much for including me in the care of this patient and please do not hesitate to contact me or the hospitalist service should there be need for further medical evaluation. /[id number]/MODL MTDD
--- NOTE | 2017-09-14 15:09 | BAPA ---
[f rep st] ADMISSION PSYCHIATRIC ASSESSMENT DATE OF SERVICE: 09/14/2017 REASON FOR ADMISSION: Patient is a 41-year-old male, known to me from previous admi ssion about a year ago. He has a history of schizophrenia and apparently had not been on medications since discharge from this facility in July of 2016. He states that he has been associated with several clinics in [place] and [place] mostly through support from the [facility]. He states, however, that he has not taken any psychotropic medicines, because he does not belie ve he needs them and that he is not interested in taking any now. He states his only reason for bein g at the hospital is that he came into the emergency department to complain of feeling nauseated and having a headache, and wanted to be admitted "to get myself back in shape." He states today that he feels dehydrated and that his brain is "foggy." He told the [facility] worker yesterday the same thing. He states that he needs to essentially recuperate and that he believes there is something medically wro ng with him. He states he was at [facility] for 3 days and discharged to home on the day he was readmitted here. He states that he needs medicines for diabetes, though it is unclear that he ramos s ever had diabetes, and he presented requesting the same a year ago. He denies any other psychiatri c hospitalizations since he was here. He is pleasant and interactive, though is adamant that he does not require psychiatric treatment and simply needs to recuperate, even though he was just in the [facility]. When patient was here a year ago, he initially agreed to take Abilify and then was given Inve ga Sustenna shot. He states that this caused him to have "stiff muscles" and that he will not consid er taking that medication again. When asked about the Abilify, he stated that he does not believe he needed any medication at all. He does state, however, that he needs insulin, because he believes he is diabetic. 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 PAST PSYCHIATRIC HISTORY: Largely as above. The patient has been diagnosed by Dr. Gutierrez, myself a year ago here with schizophrenia, and placed on long-acting injectable. It appears that he did no t take it after he left, however. He is currently denying hallucinations and does not appear to be p articularly paranoid. He does have grandiose delusions of being a certified professional coder, which were p resent a year ago. He was also seen by Dr. Sandoval in 2016 and 2017 while in long term, and diagnosed wi th schizophrenia also. He is not currently associated with any mental health center, though states shirley rubalcava has been living largely in [place]. ALLERGIES: No known medical allergies. CURRENT MEDICATIONS: None. PAST MEDICAL HISTORY: Noncontributory except for his belief he has diabetes and obesity. SOCIAL HISTORY: Patient is single. He states he is part and part . He notes no supports locally other than the [facility]. He states that he was livin g in an apartment supported by the [facility], though for some reason he cannot explain, he lost this housing. He states in a very disorganized manner that he believed that they were charging him extra and out of pocket that came out of an inheritance that he had gotten, but they would not let him have . He states also that he believes that they were placing urine in his apartment so that he would get kicked out. Patient is currently apparently homeless, and when he got kicked out of his apartment i s unclear. He has a history of prolonged long term sentences for various nonviolent crimes and most recen tly was in a hospital for several days prior to presenting back to this facility many miles away. He states that he took the bus on purpose to come to [place], because he liked our hospital. SUBSTANCE ABUSE HISTORY: Patient denies any recent substance use. His urine drug screen was negativ e for all substances, and his alcohol was less than detectable. ADMISSION LABORATORY: CBC shows a white count up at 10.81 with neutrophil percentage up to 75.7, oth erwise normal. Serum chemistries show a nonfasting glucose up at 117, otherwise normal. TSH is norm al at 3.12. Urine drug screen shows no substances of abuse, and alcohol is less than detectable. MENTAL STATUS EXAMINATION: APPEARANCE: An obese male who is pleasant, cooperative, and appropriately interactive. BEHAVIOR: He remembers me by name and is friendly, willing to sit a nd talk with me, though is not willing to discuss the possibility of mental illness or any treatments for that. AFFECT: Euthymic, stable, and appropriate. MOOD: Described as "good." THOUGHT PROCESS : Generally linear and goal directed. THOUGHT CONTENT: Some grandiosity, believing he is a profess ional beauty artist; and possible paranoia, believing that the [facility] was after him, or trying to get him in trouble or steal his money. He denies any auditory, visual, or tactile hallucinations. He is alert and oriented to person, place, time, and situation, and is w ell aware of his surroundings and resources. INTELLECT: Appears to be at least average, as evidence d by his fund of knowledge and vocabulary. He denies any thoughts of suicide, homicide, or violence. INSIGHT/JUDGMENT: Appear to be poor. IMPRESSION: Schizophrenia, paranoid type, chronic with acute exacerbation; homelessness; medication noncompliance; lack of supports. Patient is a pleasant, 41-year-old, male who presents at this time with acute exacer bation of his psychosis due to medication noncompliance. That being said, the exacerbation is really very mild and I believe he is mostly looking for secondary gain, as he has no where to be. We will evaluate him to determine his level of need and acuity, and proceed after that. He is currently refu sing all medications, and so our inpatient goals may be limited. ESTIMATED LENGTH OF STAY: 3-5 days. /[id number]/MODL
[2017-09-14] MEDS ORDERED: MAGNESIUM HYDROXIDE 30 ML UDCUP PO PRN (17:48)
[2017-09-14] MEDS ORDERED: OLANZapine DISINTEGR 10 MG TAB PO PRN (17:48)
[2017-09-14] MEDS ORDERED: NICOTINE POLACRILEX 2 MG GUM B PRN (17:48)
[2017-09-14] MEDS ORDERED: ACETAMINOPHEN 325 MG TAB PO PRN (17:48)
[2017-09-14] MEDS ORDERED: LORazepam 0.5 MG TAB PO PRN (17:48)
--- NOTE | 2017-09-15 15:07 | SOAPPROG ---
SOAP Progress Note Assessment/Plan: Assessment: Plan: 09/15/17 15:07 Psychosis: Remains disorganized at times. I do not believe he meets criteria for certification. Will likely d/c tomorrow with expiration of M-1 hold. Subjective: Pt seen, discussed with staff. Reports being "ready to get out of here." Continues to state he was only here to look in to his nausea. Continues to refuse all psychotropic medications stating he does not need them. I discussed with him again my recommendations that he restart meds, but he refuses. I agreed to help him work on a d/c plan. Objective: Vital Signs Temp Pulse Resp BP Pulse Ox 36.6 C 90 14 149/91 H 91 L 09/15/17 06:00 09/15/17 06:00 09/15/17 06:00 09/15/17 06:00 09/15/17 06:00 MSE: Marginally groomed, pleasant and coop. Interacts appropriately with me. Affect is euthymic, stable, approp. Mood is "good." TP is generally linear, though staff notes disorganization overnight. Denies A/V/T halluc's. Denies SI /HI/. - Time Spent With Patient Time Spent With Patient: 15" ICD10 Worksheet Patient Problems: Problems Problem Status Onset Schizoaffective disorder Acute Suicidal ideation Acute
[2017-09-15] MEDS: MAG HYDROX/AL HYDROX/SIMETH 30 ML UDCUP PO PRN (23:09)
[2017-09-16] MEDS: MAG HYDROX/AL HYDROX/SIMETH 30 ML UDCUP PO PRN (06:21)
[2017-09-16 06:55] VITALS: BP 143/100
--- NOTE | 2017-09-16 16:18 | BDS ---
[f rep st] BEHAVIORAL HEALTH DISCHARGE SUMMARY REASON FOR ADMISSION: Patient is a 41-year-old male, who presented to the Emergency Department of his own accord, requesting help with nausea and stomach upset. He has a history of sc hizophrenia, and when he presented to the emergency department he was quite disorganized. He had bee n off his prescribed medications since discharge from this facility in July 2016. He had apparen tly been living in [place] in housing for homeless people through the [facility], but stated, for whatever reason, he got kicked out of that. He then came immediately to [facility] where he came to the emergency department requesting evaluation. In the emergency department and wh en he arrived on the floor, he refused to consider any psychotropic medicines, saying he did not need them, and needed only to be evaluated for his nausea. A full description of the events preceding ad mission can be found in his admission history dated to 09/14/2017. ADMITTING DIAGNOSES: Schizophrenia (paranoid type, chronic with acute exacerbation), homelessness, m edication noncompliance, and lack of supports. ADMITTING PHYSICAL EXAMINATION: Performed by Dr. Karl Sagastume revealed, obesity. No other physic al findings. ADMISSION LABORATORY: CBC showed a white count up at 10.81 with neutrophil percentage elevated at 75 .7%. Serum chemistries were normal. Nonfasting glucose was up at 117. TSH was normal at 3.120. Ur ine drug screen was negative for all substances, and alcohol was less than detectable. HOSPITAL COURSE: Patient was [facility] unit on an M1 hold. Tonny rubalcava was pleasant, cooperative, and recognized me by name when he saw me on the unit from a year ago. Tonny rubalcava was compliant with staff directions; did show some hostile behavior in relation to demanding food a t off times and what staff reviewed as a desire to over eat. Other than this, he was cooperative and displayed no behavioral problems. He participated in some groups, though struggled to follow due to his level of disorganization. I was able to communicate effectively with him and attempted to build a therapeutic alliance to get him to restart his medications, though he refused. This stayed consta nt through his stay, and he was never agreeable with taking any psychotropic medications. At the time of discharge, the patient's M1 hold was expiring, and he stated that he felt he could mani ve the hospital because his nausea had resolved. He remained adamant that he did not want to follow up with [facility] or start any psychotropic medicines. His level of organization had im proved, and he was able to recite a detailed plan to go to the [facility] and then possibly retu rn to [place]. He also was able to tell us the name and phone number of his pillowcase cleaner at the [facility], and the customer care team coach was able to contact them and provide him with resource s. The patient was pleased by this and requested to be discharged. CONDITION ON DISCHARGE: Stable. His affect was euthymic, stable, and appropriate. His thoughts wer e better organized. He was having no overt signs of psychosis. He was happy and forward thinking. DISCHARGE MEDICATIONS: None. DISCHARGE DIAGNOSES: Schizophrenia (paranoid type, chronic with acute exacerbation), homelessness, c hronic illness, recurrent illness, medication noncompliance, and obesity. DISPOSITION: Patient left the hospital of his own accord. FOLLOWUP: Patient is given appointments for screening at [facility], though it i s unclear whether he will comply with this. I can confirm that he was given the instructions and the times of the appointments at the time of dis charge. Patient was discharged at the expiration of his M1 hold. Patient's attitude was positive and cooperative. Patient did not have advance directives, but was a full code throughout his stay. There were no pending labs or studies at the time of his discharge. /[id number]/MODL
== END 2017-09-16 13:50 | disposition home or self-care (01) | DRG 885 ==
LOC: BBEH 09-14 11:50
PROVIDERS: ADMIT Psychiatry & Neurology Psychiatry; ATTEND Psychiatry & Neurology Psychiatry
DX: F20.0 Paranoid schizophrenia (principal); I10 Essential (primary) hypertension; E66.9 Obesity, unspecified; Z59.0 Homelessness; Z91.14 Patient's other noncompliance with medication regimen
CPT/HCPCS: 80305; G0480; J2405

== ENCOUNTER 2017-09-27 21:03 | Emergency (ER) | payer OTHER ==
[2017-09-27] MEDS ORDERED: DEXAMETHASONE 4 MG TAB PO ONE (21:12)
[2017-09-27 21:16] VITALS: BP 125/91
--- NOTE | 2017-09-27 21:16 | EDPHY ---
H & P Time Seen by Provider: 09/27/17 21:12 HPI/ROS: CHIEF COMPLAINT: Sore throat HISTORY OF PRESENT ILLNESS: Patient is a 41-year-old homeless man with a history of schizophrenia and hypertension who comes to the emergency department complaining of a sore throat. He has not had a fever. The sore throat began today. No shortness of breath or cough. No sinus symptoms. REVIEW OF SYSTEMS: Constitutional: denies: chills, fever, recent illness, recent injury EENTM: See HPI Respiratory: denies: cough, shortness of breath Cardiac: denies: chest pain, irregular heart rate, lightheadedness, palpitations Gastrointestinal/Abdominal: denies: abdominal pain, diarrhea, nausea, vomiting, blood streaked stools Genitourinary: denies: dysuria, frequency, hematuria, pain Musculoskeletal: denies: joint pain, muscle pain Skin: denies: lesions, rash, jaundice, bruising Neurological: denies: headache, numbness, paresthesia, tingling, dizziness, weakness Hematologic/Lymphatic: denies: blood clots, easy bleeding, easy bruising Immunologic/allergic: denies: HIV/AIDS, transplant EXAM: GENERAL: Foul-smelling, no acute distress HEAD: Atraumatic, normocephalic. EYES: Pupils equal round and reactive to light, extraocular movements intact, sclera anicteric, conjunctiva are normal. ENT: TMs normal, nares patent, oropharynx clear without exudates. Moist mucous membranes. NECK: Normal range of motion, supple without lymphadenopathy or JVD. LUNGS: Breath sounds clear to auscultation bilaterally and equal. No wheezes rales or rhonchi. HEART: Regular rate and rhythm without murmurs, rubs or gallops. ABDOMEN: Soft, nontender, normoactive bowel sounds. No guarding, no rebound. No masses appreciated. BACK: No CVA tenderness, no spinal tenderness, step-offs or deformities EXTREMITIES: Normal range of motion, no pitting or edema. No clubbing or cyanosis. NEUROLOGICAL: Cranial nerves II through XII grossly intact. Normal speech, normal gait. 5/5 strength, normal movement in all extremities, normal sensation PSYCH: Normal mood, normal affect. States that he hears voices but this is baseline. No suicidality SKIN: Warm, dry, normal turgor, no visible rashes or lesions. Source: Patient Exam Limitations: No limitations - Medical/Surgical History Hx Asthma: No Hx Chronic Respiratory Disease: No Hx Diabetes: Yes Hx Cardiac Disease: No Hx Renal Disease: No Hx Cirrhosis: No Hx Alcoholism: No Hx HIV/AIDS: No Hx Splenectomy or Spleen Trauma: No Other PMH: DM?. Bipolar, schitzophenia. - Family History Significant Family History: No pertinent family hx - Social History Smoking Status: Light smoker Alcohol Use: Sober Drug Use: None Constitutional: Initial Vital Signs Temperature (C) 36.7 C 09/27/17 21:05 Heart Rate 99 09/27/17 21:05 Respiratory Rate 18 09/27/17 21:05 Blood Pressure 125/91 H 09/27/17 21:05 O2 Sat (%) 96 09/27/17 21:05 O2 Delivery Mode Room Air Allergies/Adverse Reactions: No Known Allergies Allergy (Unverified 09/27/17 21:16) Home Medications: Medication Instructions Recorded NK [No Known Home Meds] 09/14/17 Medical Decision Making ED Course/Re-evaluation: The patient is at his baseline as far as mental status. He has a sore throat but no signs of purulence erythema. Will treat him with a small course of Decadron. He understands this plan. We will discharge him at this time. Differential Diagnosis: Partial list of the Differential diagnosis considered include but were not limited to; viral pharyngitis, schizophrenia, strep throat, mono and although unlikely based on the history and physical exam, I also considered sinusitis, meningitis, sepsis, suicidality. - Data Points Medications Given: Discontinued Medications Dexamethasone (Decadron) 10 mg PO EDNOW ONE Stop: 09/27/17 21:13 Last Admin: 09/27/17 21:17 Dose: 10 mg Departure - Departure Disposition: Home, Routine, Self-Care Clinical Impression: Schizoaffective disorder Qualifiers: Schizoaffective disorder type: unspecified Qualified Code(s): F25.9 - Schizoaffective disorder, unspecified Pharyngitis Qualifiers: Pharyngitis/tonsillitis etiology: unspecified etiology Qualified Code(s): J02.9 - Acute pharyngitis, unspecified Condition: Fair Instructions: Pharyngitis (ED) Referrals: [facility],. [Clinic] - 2-3 days, if not improved
== END 2017-09-27 21:20 | disposition home or self-care (01) ==
LOC: EDUNIT#
DX: J02.9 Acute pharyngitis, unspecified (principal); F25.9 Schizoaffective disorder, unspecified; F17.200 Nicotine dependence, unspecified, uncomplicated